=== PATIENT | female | born 1960 | race Caucasian/White ===

== ENCOUNTER 2020-02-23 11:20 | Emergency (ER) | payer MEDICAID ==
[~2020-02-23] VITALS: Ht 162.6 cm; Wt 86.2 kg
[2020-02-23] MEDS ORDERED: IOHEXOL 300 MG/ML 100ML BOTTLE IJ ONE (12:33)
[2020-02-23] MEDS ORDERED: SODIUM CHLORIDE 0.9% 1,000 ML IV ONE ×2 (12:45)
[2020-02-23 13:22] LABS: Basophils # (auto) 0.1 10 ^3/uL (0-0.2); Hemoglobin 12.2 g/dL (12.2-16.2); Lymphocytes # (auto) 1.9 10 ^3/uL (0.4-5.4)
[2020-02-23 13:24] LABS: Basophils % (auto) 0.4 % (0.0-2.0); Eosinophils # (auto) 0.5 10 ^3/uL (0-0.8); Eosinophils % (auto) 3.2 % (0.0-7.0); Hematocrit 37.7 % (36.0-46.0); Mean Corpuscular Hemoglobin 26.2 pg (28.0-32.0); Mean Corpuscular Hgb Conc. 32.2 g/dL (32.0-36.0); Mean Corpuscular Volume 81.3 fL (80.0-100.0); Monocytes # (auto) 0.7 10 ^3/uL (0-1.3); Monocytes % (auto) 4.5 % (0.0-12.0); Neutrophils # (auto) 11.7 10 ^3/uL (1.6-8.6); Neutrophils % (auto) 78.9 % (37.0-80.0); Platelet Count (auto) 407 10^3/uL (140-450); Red Blood Cells 4.64 10^6/uL (4.0-5.20); Red Cell Distribution Width 14.7 % (11.8-14.3); White Blood Cell 14.8 10^3/uL (4.4-10.8)
[2020-02-23 13:35] LABS: INR 0.96 (0.9-1.15); Partial Thromboplastin Time 30.9 sec (23.0-31.2)
[2020-02-23 13:50] LABS: Alanine Aminotransferase 15 U/L (13-56); Albumin 2.9 g/dL (3.4-5.0); Anion Gap 4 (5-15); Aspartate Aminotransferase 9 U/L (15-37); BUN/Creatinine Ratio 18.7; Blood Urea Nitrogen 17 mg/dL (7-18); Calcium 8.6 mg/dL (8.5-10.1); Carbon Dioxide 28 mmol/L (21-32); Chloride 105 mmol/L (98-107); GFR African American 81 mL/min; GFR Non-African American 67 mL/min; Glucose 178 mg/dL (74-106); Potassium 4.3 mmol/L (3.5-5.1); Sodium 137 mmol/L (136-145)
[2020-02-23 13:55] LABS: Alkaline Phosphatase 102 U/L (45-117); Bilirubin, Total 0.1 mg/dL (0.2-1.0); Total Protein 6.8 g/dL (6.4-8.2)
[2020-02-23 14:20] VITALS: BP 115/78
== END 2020-02-23 15:43 | disposition home or self-care (01) ==
LOC: EDBD 11:20 → ER 11:20
DX: S20.219A Contusion of unspecified front wall of thorax, initial encounter (principal); S30.1XXA Contusion of abdominal wall, initial encounter; R41.82 Altered mental status, unspecified; D72.829 Elevated white blood cell count, unspecified; R73.9 Hyperglycemia, unspecified; E44.0 Moderate protein-calorie malnutrition; Z68.32 Body mass index [BMI] 32.0-32.9, adult; V43.52XA Car driver injured in collision with other type car in traffic accident, initial encounter; Y93.89 Activity, other specified; Y92.488 Other paved roadways as the place of occurrence of the external cause; Y99.8 Other external cause status
CPT/HCPCS: 36415; 70450; 71260; 72125; 74177; 80053; 84484; 85025; 85610; 85730; 93005; 96360; 96361; 99285; J7030; Q9967

== ENCOUNTER 2024-05-12 00:01 | Inpatient (IN) | payer OTHER, MEDICAID ==
[2024-05-12] VITALS (16 sets, daily range): BP systolic 115–163; BP diastolic 67–89; PULSE 79–123; RESP 18–34; O2SAT 95–100
[~2024-05-12] VITALS: Ht 162.6 cm; Wt 79.8 kg
--- NOTE | 2024-05-12 00:10 | ED.PDOC ---
SOB-HPI HPI Comments HPI: Poor Historian. History obtained from patient and EMS. Both are extremely poor historian. 63-year-old female brought in by ambulance from home for respiratory distress. Per EMS, on arrival to the place of residence, patient was laying on the floor in severe respiratory distress pulse ox was 69% room air. Patient does not use oxygen at home. They stated that she was discharged from the hospital this morning with diagnosis of double pneumonia. They placed the patient on a CPAP and brought her here immediately. Patient was evaluated immediately upon arrival. Patient was placed on a BiPAP. Breathing treatment was initiated and steroids. Past Medical History: Diabetes, Past Surgical History: Denies any REVIEW OF SYSTEMS: CONSTITUTIONAL: Denies acute: fever, diaphoresis, chills, generalized weakness. HEAD: Denies acute: headache, photophobia Eyes: Denies acute: Double vision, vision loss, eye pain, eye discharge. EARS: Denies acute: tinnitus, hearing loss, ear discharge, ear pain, THROAT: Denies acute: sore throat, swelling, difficulty swallowing , pain with swallowing, change in voice. NECK: Denies acute: neck pain, neck swelling, stiff neck. HEART: Denies acute : chest pain, palpitations, LUNGS: Denies acute: , wheezing, cough, hemoptysis ABDOMEN: Denies acute: abdominal pain, Nausea, Vomiting, diarrhea, melena , hematemesis, hematochezia SKIN: Denies acute: rash, redness, lesions, itchiness. EXTREMITIES: Denies acute: calf pain, numbness, tingling, weakness, denies pain in extremity. Denies acute: Low back pain. Neuro: Denies acute: focal neurological deficit, motor or sensory focal neurological deficit, tremors, seizure like activity, confusion, dizziness, change in mental status, loss of bowel or bladder function, cauda equina like symptoms. : Denies acute: dysuria, hematuria, flank pain, increase in urinary frequency. PSYCH: Denies acute: hallucination, suicidal ideation, homicidal ideation. FEMALE: Denies acute: abnormal vaginal bleeding, foul odor, unusual discharge. PHYSICAL EXAM: General: Moderate to severe acute distress, awake and alert. Head: normocephalic, atraumatic. Neck: supple, trachea is midline, no swelling. Throat: Normal phonation. Eyes:, no erythema, no purulent discharge, no proptosis, no icterus. Heart: regular rate, regular rhythm, no significant murmur appreciated. Lungs: apparent respiratory distress, No wheezing, mild bilateral rhonchi, no crackles. No stridors Abdomen: non tender to palpation, non distended, soft, no guarding, no rebound, + bowel sounds. Obese Neuro: Awake, Alert, oriented to name, self, situation, follows commands GCS=15. Speech is normal. Skin: no petechia, no purpura, no cyanosis, non-pale, not jaundice. Lower extremities: --no - Pitting edema no deformity, no focal swelling, no calf TTP. Makes eye contact. moves all four extremities. Face: no apparent facial droop. Ambulating in the ED independently. ED COURSE: Time Seen by MD: 00:02 Primary Care Provider: JAGRUTI OROPEZA Reviewed notes: Nurses Notes, Tower Hand Notes, Allergies Information Source: Patient, Emergency Med Personnel Past Medical History PAST MEDICAL HISTORY: Denies Surgical History: Denies all surgeries SHOE STAMPER History: No Pertinent SHOE STAMPER History Social History Smoker: Non-Smoker Alcohol: Denies ETOH Use Drugs: Denies Drug Use Was a procedure done? Was a procedure done?: Yes Sedation Sedation?: No Chest Tube Indication: Pneumothorax (rigth) Procedure: Sterile preparation Anesthetic: Lidocaine (Lidocaine 2% with epi) Site: R 3rd intercostal space Drainage: Air Informed consent obtained: Yes Risks/benefits/alt described: Yes Notes Uresil flutter valve thoracostomy used, inserted at right 3rd ICS, using 12cc of 2% lidocaine. Chest tube connected to wall suction. Patient tolerated procedure well. Differential Dx Differential Diagnosis: Other (DDx include ACS, unstable angina, anxiety, PE, pneumothroax, neoplasm, cardiac ischemia, COPD, asthma, CHF, pleural effusion, tobacco abuse, pneumonia, hypoxia, hypercapnia, anemia., infection/sepsis., pulmonary edema. Asthma, Cardiac tamponade, infection.) X-Ray, Labs, Meds, VS Vital Signs Date Time Temp Pulse Resp B/P (MAP) Pulse Ox O2 Delivery O2 Flow Rate FiO2 05/12/24 00:52 153/90 05/12/24 00:15 123 34 97 Bi-Pap+ 45 45 05/12/24 00:15 116 32 156/94 (114) 98 05/12/24 00:05 116 156/94 Facial BiPAP Mask 45 05/12/24 00:01 97.6 130 24 166/85 (112) 97 Lab Test 05/12/24 01:35 05/12/24 00:27 Range/Units Troponin I High Sensitivity 5 5 </=34 ng/L White Blood Count 15.5 H 4.4-10.8 10^3/uL Red Blood Count 4.74 4.0-5.20 10^6/uL Hemoglobin 12.9 12.2-16.2 g/dL Hematocrit 39.1 36.0-46.0 % Mean Corpuscular Volume 82.5 80.0-100.0 fL Mean Corpuscular Hemoglobin 27.3 L 28.0-32.0 pg Mean Corpuscular Hemoglobin Concent 33.1 32.0-36.0 g/dL Red Cell Distribution Width 14.4 H 11.8-14.3 % Platelet Count 614 H 140-450 10^3/uL Mean Platelet Volume 7.0 6.9-10.8 fL Neutrophils (%) (Auto) 37.0-80.0 % Lymphocytes (%) (Auto) 10.0-50.0 % Monocytes (%) (Auto) 0.0-12.0 % Basophils (%) (Auto) 0.0-2.0 % Neutrophils # (Auto) 1.6-8.6 10 ^3/uL Lymphocytes # (Auto) 0.4-5.4 10 ^3/uL Monocytes # (Auto) 0-1.3 10 ^3/uL Differential Total Cells Counted 100.0 100 Neutrophils % (Manual) 84 H 37.0-80.0 Band Neutrophils % (Manual) 3 Lymphocytes % (Manual) 10 10.0-50.0 Monocytes % (Manual) 3 0-12 Eosinophils % (Manual) 0 0-7 Basophils % (Manual) 0 0.0-2.0 Metamyelocytes % (manual) 0 Myelocytes % (Manual) 0 Promyelocytes % (Manual) 0 Blast Cells % (Manual) 0 Reactive Lymphocytes 0 Platelet Estimate Increased Sodium Level 135 L 136-145 mmol/L Potassium Level 4.1 3.5-5.1 mmol/L Chloride Level 98 98-107 mmol/L Carbon Dioxide Level 28 20-31 mmol/L Anion Gap 9 5-15 Blood Urea Nitrogen 31 H 9-23 mg/dL Creatinine 0.89 0.550-1.02 mg/dL Glomerular Filtration Rate Calc 72 >90 mL/min BUN/Creatinine Ratio 34.8 H 10.0-20.0 Serum Glucose 367 H 74-106 mg/dL Lactic Acid Level 2.7 *H 0.4-2.0 mmol/L Calcium Level 9.0 8.7-10.4 mg/dL Magnesium Level 1.3 L 1.6-2.6 mg/dL Total Bilirubin 0.3 0.2-1.0 mg/dL Aspartate Amino Transferase (AST) 10 L 13-40 U/L Alanine Aminotransferase (ALT) 15 7-40 U/L Alkaline Phosphatase 104 46-116 U/L B-Type Natriuretic Peptide 123.46 0-100 pg/mL Total Protein 6.1 5.7-8.2 g/dL Albumin 3.6 3.2-4.8 g/dL Current Medications Medications (Trade) Dose Ordered Sig/Parrish Route Start Time Stop Time Status Last Admin Albuterol (Ventolin Medneb) 2.5 mg ONCE ONCE NEB 05/12/24 00:15 05/12/24 00:16 DC 05/12/24 00:21 Ipratropium [place] (Atrovent Medneb) 0.5 mg ONCE ONCE NEB 05/12/24 00:15 05/12/24 00:16 DC 05/12/24 00:21 Methylprednisolone Sodium Succinate (Solu Medrol) 125 mg ONCE ONCE IV 05/12/24 00:45 05/12/24 00:46 DC 05/12/24 00:50 Fentanyl Citrate 50 mcg ONCE ONCE IV 05/12/24 01:00 05/12/24 01:01 DC 05/12/24 00:52 Magnesium Sulfate/ Dextrose 100 ml @ 100 mls/hr ONCE ONCE IV 05/12/24 01:30 05/12/24 02:29 DC 05/12/24 02:32 Sodium Chloride 1,000 ml @ 1,000 mls/hr Q1H ONCE IV 05/12/24 01:30 05/12/24 02:29 DC 05/12/24 02:32 Piperacillin Sod/ Tazobactam Sod 100 ml @ 100 mls/hr ONCE ONCE IV 05/12/24 01:30 05/12/24 02:29 DC 05/12/24 02:[address] [address] Ph: [phone] DIAGNOSTIC IMAGING Diagnostic Imaging Report : [id number] Signed PATIENT: KRISS MCCORMICK ACCT: [id number] UNIT: [id number] : 1960 LOC: ER ROOM / BED: / AGE / SEX: 63 / F ADM STATUS: REG ER SERVICE ORDERING PHYSICIAN: YOLANDA LOPEZ DO PROCEDURE(s): CXRP - CHEST PORTABLE REASON: sob ORDER NUMBER(s): [id number], ACCESSION NUMBER(s): [id number] EXAM: XY CHEST PORTABLE CLINICAL HISTORY: sob TECHNIQUE: Single view of the chest WID: COMPARISON: CT chest from 02/23/2020 FINDINGS: Lines and tubes: None Chest: The heart size and pulmonary vasculature is within normal limits. Moderate right pneumothorax. Mixed opacities in the right lung. Diffuse interstitial prominence of the lungs. The osseous structures are grossly intact. IMPRESSION: Moderate right pneumothorax. ATED BY: FILEMON DWYER MD DICTATED DATE/TIME: 05/12/24144 SIGNED BY: FILEMON DWYER MD SIGNED DATE/TIME: 05/12/24144 CC: Time of 1ST Reevaluation: 01:50 Reevaluation 1ST: Improved Time of 2ND Reevaluation: 02:56 Reevaluation 2ND: Resolved Patient Education/Counseling: Diagnosis, Treatment Family Education/Counseling: Other Comments Patient presented with the above HPI.----respiratory distress--workup was initiated. patient was found with the above mentioned diagnosis. Patient was evaluated immediately upon arrival. the following medications were ordered: please refer to order lists of meds and tests obtained by myself Dr. Lopez. Patient ED course and VS have been stabilized. Patient has been reassessed in the ED and remained in a stable condition. Pertinent incidental findings were discussed with the patient and/or family. Patient/family voices understanding and is agreeable with plan. Patient has been observed in the ED adequate length of time to insure improvement/stability. Escalation of care considered: Consideration of escalation to observation or admission Patient was ADMITTED to the medicine team for further evaluation and treatment of their presentation. Patient chest x-ray shows moderate right-sided pneumothorax. She denies any fall or trauma. Patient was descended for procedure of placement of a chest tube on the right side. This was done under local anesthesia. Please see procedure note. Procedure was performed successfully. Bleeding minimal. Complications none. Repeat chest x-ray were obtained that shows significant improvement of the pneumothorax. All the reports of any imaging studies that were ordered by myself were reviewed by myself. Departure 1 Departure Time of Disposition: 00:09 Impression: Primary Impression: Acute respiratory distress Additional Impressions: Hypomagnesemia Elevated lactic acid level Leukocytosis Thrombocytopenia Pneumothorax on right Disposition: ADMITTED INPATIENT Admit to: [facility] Condition: Guarded Discharged With: Self Critical Care Note Critical Care Time?: Yes (1 hr-critical care time only) Heart Score Heart Score: Heart Score Response (Comments) Value History N/A 0 EKG N/A 0 Age N/A 0 Risk Factors N/A 0 Troponin N/A 0 Total 0 I personally scribed for YOLANDA LOPEZ DO ([email or web address]) on 05/12/24 at 02:36. Electronically submitted by Paul Moe ([email or web address]). YOLANDA LOPEZ DO May 12, 2024 00:10
[2024-05-12] MEDS: IPRATROPIUM BROM 0.5 MG/2.5ML INH SOL NEB ONE (00:21)
[2024-05-12] MEDS: ALBUTEROL SULF 2.5 MG/0.5ML(0.5%) NEB SOLN NEB ONE (00:21)
[2024-05-12] MEDS: methylPREDNISolone SOD SUCC 125 MG/2 ML VL IV ONE ×2 (00:50→15:06)
[2024-05-12] MEDS: fentaNYL CITRATE 100 MCG/2 ML VL ONE (00:50)
[2024-05-12] MEDS: fentaNYL CITRATE 100 MCG/2 ML VL IV ONE ×3 (00:52→06:45)
[2024-05-12 01:03] LABS: Hemoglobin 12.9 g/dL (12.2-16.2)
[2024-05-12 01:05] LABS: Hematocrit 39.1 % (36.0-46.0); Mean Corpuscular Hemoglobin 27.3 pg (28.0-32.0); Mean Corpuscular Hgb Conc. 33.1 g/dL (32.0-36.0); Mean Corpuscular Volume 82.5 fL (80.0-100.0); Platelet Count (auto) 614 10^3/uL (140-450); Red Blood Cells 4.74 10^6/uL (4.0-5.20); Red Cell Distribution Width 14.4 % (11.8-14.3); White Blood Cell 15.5 10^3/uL (4.4-10.8)
[2024-05-12 01:08] LABS: Alanine Aminotransferase 15 U/L (7-40); Albumin 3.6 g/dL (3.2-4.8); Alkaline Phosphatase 104 U/L (46-116); Anion Gap 9 (5-15); BUN/Creatinine Ratio 34.8 (10.0-20.0); Carbon Dioxide 28 mmol/L (20-31); Potassium 4.1 mmol/L (3.5-5.1)
[2024-05-12 01:09] LABS: Aspartate Aminotransferase 10 U/L (13-40); Bilirubin, Total 0.3 mg/dL (0.2-1.0); Blood Urea Nitrogen 31 mg/dL (9-23); Chloride 98 mmol/L (98-107); Glucose 367 mg/dL (74-106); Lactic Acid w/Reflex 2.7 mmol/L (0.4-2.0); Magnesium 1.3 mg/dL (1.6-2.6); Sodium 135 mmol/L (136-145); Total Protein 6.1 g/dL (5.7-8.2)
[2024-05-12 01:15] LABS: Basophils % (manual) 0 (0.0-2.0); Blast Cells 0; Eosinophils % (manual) 0 (0-7); Metamyelocytes % 0; Myelocytes % 0; Promyelocytes % 0; Reactive Lymphocytes 0
[2024-05-12 01:25] LABS: Band Neutrophils % (manual) 3; Lymphocytes % (manual) 10 (10.0-50.0); Monocytes % (manual) 3 (0-12)
[2024-05-12 01:28] LABS: Platelet Estimate Increased
--- NOTE | 2024-05-12 01:48 | DVH ---
EXAM: XY CHEST PORTABLE CLINICAL HISTORY: sob TECHNIQUE: Single view of the chest WID: COMPARISON: CT chest from 02/23/2020 FINDINGS: Lines and tubes: None Chest: The heart size and pulmonary vasculature is within normal limits. Moderate right pneumothorax. Mixed opacities in the right lung. Diffuse interstitial prominence of t he lungs. The osseous structures are grossly intact. IMPRESSION: Moderate right pneumothorax.
[2024-05-12] MEDS: LIDOCAINE 2%HCL (LOCAL ANESTH.) INJ 10ml MDV IJ ONE (02:03)
[2024-05-12] MEDS: LIDOCAINE W/ EPINEPHRINE 2% INJ 20ML VIAL ONE (02:03)
[2024-05-12] MEDS: SODIUM CHLORIDE 0.9% 1,000 ML IV ONE ×2 (02:32→04:12)
[2024-05-12] MEDS: MAGNESIUM SULFATE 1GM/100ML 100 ML IV ONE ×2 (02:32→16:44)
[2024-05-12] MEDS: PIPERACILLIN-TAZOB 3.375GM 100 ML IV ONE (02:47)
--- NOTE | 2024-05-12 03:01 | DVH ---
CHEST RADIOGRAPH Indication: post chest tube placement Technique: Single frontal view of the chest was obtained COMPARISON: XY CHEST PORTABLE on DOS: 05/12/24 FINDINGS: Lines and Tubes: There has been interval placement of a right-sided chest tube. Lungs: Increased interstitial markings are noted throughout the lungs, worse on the right. Pleura: No effusion. No pneumothorax. Cardiomediastinal contours: Unremarkable Bones: Unremarkable IMPRESSION: 1. Interval placement of a right-sided chest tube with re-expansion of the right lung. 2. Pneumonia.
[2024-05-12 03:14] LABS: Base Excess 0.6 mmol/L (-2.0-3.0)
[2024-05-12] MEDS ORDERED: NITROGLYCERIN 0.4 MG SL TAB SL PRN (07:45)
[2024-05-12] MEDS ORDERED: DEXTROSE (50%) 50ML SYRG IV PRN (07:45)
--- NOTE | 2024-05-12 07:47 | DVHHP2 ---
History of Present Illness Reason for Visit: SOB History of Present Illness Minor, Nae is a 63-year-old female with past medical history of diabetes, anxiety, depression, pneumonia, and cholecystectomy who presents to the ED for SOB. Patient states that she was at [facility] for[facility] was discharged yesterday with pneumonia. She does not recall what medications she was given. Patient states that she had called EMS because she was feeling short of breath when she was at home, she stated she had crawled to the door to open up the door for them and that is when EMS found her lying on the floor. On the field her room air sats were 60%. Patient is a poor historian but does states that she smokes 1 pack of cigarettes per day, quit drinking, and quit marijuana usage. Patient denies any chest pain, abdominal pain, nausea, vomiting, diarrhea, fever, chills, lightheadedness, weakness, and dizziness. Pulmonary: Pneumonia Psych: Anxiety, Depression Endocrine: Diabetes Past Surgical History: Cholecystectomy Family History: Other (Both parents ) Smoke: 1 pack per day ALCOHOL: none Drugs: Marijuana Lives: with Family Domestic Violence: Neg Review of Systems Constitutional: No: Fever, Chills, Sweats, Weakness, Malaise, Other Eyes: No: Pain, Vision change, Conjunctivae inflammation, Eyelid inflammation, Other, Redness ENT: No: Ear pain, Ear discharge, Nose pain, Nose discharge, Nose congestion, Mouth pain, Mouth swelling, Throat pain, Throat swelling, Other Respiratory: Shortness of breath; No: Cough, Dry, SOB with excertion, Wheezing, Hemoptysis, Pleuritic Pain, Sputum, Wheezing, Other Cardiovascular: No: Chest Pain, Palpitations, Orthopnea, Paroxysmal Noc. Dyspnea, Edema, Lt Headedness, Other Gastrointestinal: No: Nausea, Vomiting, Abdominal Pain, Diarrhea, Constipation, Melena, Hematochezia, Other Genitourinary: No Dysuria, No Frequency, No Incontinence, No Hematuria, No Retention, No Other Musculoskeletal: No: other, neck pain, shoulder pain, arm pain, back pain, hand pain, leg pain, foot pain Skin: No: Rash, Lesions, Jaundice, Bruising, Other Neurological: No: Weakness, Numbness, Incoordination, Change in speech, Confusion, Seizures, Other Allergies: Coded Allergies: NO KNOWN ALLERGIES (Unverified , 06/15/15) Medications Current Medications Medications Dose Ordered Sig/Parrish Route Start Time Stop Time Status Last Admin Dose Admin Ceftriaxone Sodium 50 ml @ 100 mls/hr DAILY@09 IV 05/12/24 09:00 UNV Azithromycin 250 ml @ 125 mls/hr DAILY IV 05/12/24 10:00 UNV Acetaminophen/ Hydrocodone Bitart 1 tab Q4HP PRN PO 05/12/24 07:45 UNV Ondansetron HCl 4 mg Q4HP PRN IV 05/12/24 07:45 UNV Enoxaparin Sodium 30 mg DAILY SC 05/12/24 10:00 UNV Acetaminophen 650 mg Q6HP PRN PO 05/12/24 07:45 UNV Morphine Sulfate 2 mg Q4HPRN PRN IV 05/12/24 07:45 UNV Nitroglycerin 0.4 mg Q5MINP PRN SL 05/12/24 07:45 UNV Morphine Sulfate 2 mg Q30M PRN IV 05/12/24 07:45 UNV Diagnostic Test (Pha) 1 strip ACHS 05/12/24 11:30 UNV Insulin Human Regular ACHS SC 05/12/24 11:30 UNV Dextrose 50 ml UD PRN IV 05/12/24 07:45 UNV Exam Vital Signs Vital Signs Date Time Temp Pulse Resp B/P (MAP) Pulse Ox O2 Delivery O2 Flow Rate FiO2 05/12/24 06:45 151/81 05/12/24 06:34 95 Nasal Cannula 3.0 05/12/24 06:34 32 05/12/24 06:00 98.0 106 16 98.0 General Appearance: Alert, Oriented X3, Cooperative, mild distress HEENT: PERRLA, EOMI, Mucous membr. moist/pink Respiratory: Normal air movement Cardiovascular: Normal S1, Normal S2, No murmurs Abdominal: Normal bowel sounds, Soft, No tenderness, No hepatospenomegaly, No masses Extremities: No clubbing, No cyanosis, No edema, Normal pulses, No tenderness/swelling Skin: No significant lesion Neuro: Normal speech, Strength at 5/5 X4 ext, Normal tone, Sensation intact Psych/Mental Status: Mental status NL, Mood NL Labs/Xrays Labs Test 05/12/24 02:36 05/12/24 01:55 05/12/24 01:35 05/12/24 00:27 Range/Units Lactic Acid Level 3.1 *H 0.4-2.0 mmol/L Blood Gas Specimen Type Arterial Blood Gas Sample Site Right radial Blood Gas Patient Temperature 37.0 Arterial Blood Date Drawn [id number] Arterial Blood pH 7.436 7.350-7.450 Arterial Blood Partial Pressure CO2 37.4 32.0-45.0 mmHg Arterial Blood Partial Pressure O2 99.9 83.0-108.0 mmHg Arterial Blood HCO3 24.6 21.0-28.0 mmol/L Arterial Blood Oxygen Saturation 97.8 94.0-98.0 % Arterial Blood Base Excess 0.6 -2.0-3.0 mmol/L Arterial Blood Oxyhemoglobin 96.4 94.0-98.0 % Arterial Blood Carboxyhemoglobin 0.9 0.5-1.5 % Arterial Blood Methemoglobin 0.5 0.0-1.5 % Kt Test Yes Blood Gas Total Hemoglobin 13.10 12.0-16.0 g/dL Blood Gas Set Respiration Rate 12.0 Blood Gas Modality Mask - bipap Blood Gas Spontaneous Rate 19 FiO2 % 40.0 Blood Gas Tidal Volume 620.0 Blood Gas EPAP 5 Blood Gas IPAP 12 Troponin I High Sensitivity 5 </=34 ng/L White Blood Count 15.5 H 4.4-10.8 10^3/uL Red Blood Count 4.74 4.0-5.20 10^6/uL Hemoglobin 12.9 12.2-16.2 g/dL Hematocrit 39.1 36.0-46.0 % Mean Corpuscular Volume 82.5 80.0-100.0 fL Mean Corpuscular Hemoglobin 27.3 L 28.0-32.0 pg Mean Corpuscular Hemoglobin Concent 33.1 32.0-36.0 g/dL Red Cell Distribution Width 14.4 H 11.8-14.3 % Platelet Count 614 H 140-450 10^3/uL Mean Platelet Volume 7.0 6.9-10.8 fL Neutrophils (%) (Auto) 37.0-80.0 % Lymphocytes (%) (Auto) 10.0-50.0 % Monocytes (%) (Auto) 0.0-12.0 % Basophils (%) (Auto) 0.0-2.0 % Neutrophils # (Auto) 1.6-8.6 10 ^3/uL Lymphocytes # (Auto) 0.4-5.4 10 ^3/uL Monocytes # (Auto) 0-1.3 10 ^3/uL Differential Total Cells Counted 100.0 100 Neutrophils % (Manual) 84 H 37.0-80.0 Band Neutrophils % (Manual) 3 Lymphocytes % (Manual) 10 10.0-50.0 Monocytes % (Manual) 3 0-12 Eosinophils % (Manual) 0 0-7 Basophils % (Manual) 0 0.0-2.0 Metamyelocytes % (manual) 0 Myelocytes % (Manual) 0 Promyelocytes % (Manual) 0 Blast Cells % (Manual) 0 Reactive Lymphocytes 0 Platelet Estimate Increased Sodium Level 135 L 136-145 mmol/L Potassium Level 4.1 3.5-5.1 mmol/L Chloride Level 98 98-107 mmol/L Carbon Dioxide Level 28 20-31 mmol/L Anion Gap 9 5-15 Blood Urea Nitrogen 31 H 9-23 mg/dL Creatinine 0.89 0.550-1.02 mg/dL Glomerular Filtration Rate Calc 72 >90 mL/min BUN/Creatinine Ratio 34.8 H 10.0-20.0 Serum Glucose 367 H 74-106 mg/dL Calcium Level 9.0 8.7-10.4 mg/dL Magnesium Level 1.3 L 1.6-2.6 mg/dL Total Bilirubin 0.3 0.2-1.0 mg/dL Aspartate Amino Transferase (AST) 10 L 13-40 U/L Alanine Aminotransferase (ALT) 15 7-40 U/L Alkaline Phosphatase 104 46-116 U/L B-Type Natriuretic Peptide 123.46 0-100 pg/mL Total Protein 6.1 5.7-8.2 g/dL Albumin 3.6 3.2-4.8 g/dL EXAM: XY CHEST PORTABLE CLINICAL HISTORY: sob TECHNIQUE: Single view of the chest WID: COMPARISON: CT chest from 02/23/2020 FINDINGS: Lines and tubes: None Chest: The heart size and pulmonary vasculature is within normal limits. Moderate right pneumothorax. Mixed opacities in the right lung. Diffuse interstitial prominence of the lungs. The osseous structures are grossly intact. IMPRESSION: Moderate right pneumothorax. CHEST RADIOGRAPH Indication: post chest tube placement Technique: Single frontal view of the chest was obtained COMPARISON: XY CHEST PORTABLE on DOS: 05/12/24 FINDINGS: Lines and Tubes: There has been interval placement of a right-sided chest tube. Lungs: Increased interstitial markings are noted throughout the lungs, worse on the right. Pleura: No effusion. No pneumothorax. Cardiomediastinal contours: Unremarkable Bones: Unremarkable IMPRESSION: 1. Interval placement of a right-sided chest tube with re-expansion of the right lung. 2. Pneumonia. Assessment/Plan Assessment/Plan Assessment/Plan: Acute hypoxic respiratory failure likely 2nd to PTX Leukocytosis likely due to PNA Sepsis likely secondary to PNA Hypomagnesemia Moderate right pneumothorax Chest tube Labs Chest x-ray noted Supportive oxygen Fentanyl given ED NS given ED IV antibiotics-Zosyn given ED IV antibiotics-ceftriaxone plus azithromycin Mag level Steroids Respiratory treatments ABG EKG Troponin noted UA Lactic BNP Lovenox Magnesium IV IV fluids Pulmonary consult Blood culture Urine culture UA Diabetes type 2 uncontrolled Hemoglobin A1c ISS and Accu-Cheks Chronic anxiety Chronic depression Follow up outpatient with PCP FEN/PPX diet Ivf DVT ppx lovenox PUD ppx not indicated no hx of GERD or GI bleed Discussed plan of care with patient and nurse Home medications reconciled Admit to telemetry Plan discussed with: Patient My Orders Orders - RONDA CONROY FERTILIZER LOADER Procedure Category Date Status Time Ceftriaxone 1gm/50ml PHA 05/12/24 Logged D5w (Rocephin) 09:00 Ceftriaxone 1gm/50ml PHA 05/12/24 Logged D5w (Rocephin) 07:45 Azithromycin 500mg/ PHA 05/12/24 Logged 250ml (Zithromax 50 10:00 Admit ADMIT 05/12/24 Transmitted 07:42 Allergies MIGUEL ANGEL 05/12/24 Transmitted 07:42 Code Status CODE 05/12/24 Transmitted 07:42 Oxygen Per Hour RT 05/12/24 Transmitted 07:42 Hydrocodone-Acet PHA 05/12/24 Logged 5/325mg Tab ([place] 07:45 Ondansetron Hcl PHA 05/12/24 Logged (Zofran) 07:45 Complete Blood Count LAB 05/13/24 Verified 04:00 Comprehensive LAB 05/13/24 Verified Metabolic Panel 04:00 Cardiac DIET 05/12/24 Transmitted Diet-2gna,Lofat,Lochol Breakfast Enoxaparin Sodium PHA 05/12/24 Logged (Lovenox) 10:00 Acetaminophen Tablet PHA 05/12/24 Logged (Tylenol Tablet) 07:45 Morphine Sulfate [facility] 05/12/24 Logged Injection 07:45 Nitroglycerin [facility] 05/12/24 Logged Sublingual (Ntrostat 07:45 Morphine Sulfate PHA 05/12/24 Logged Injection 07:45 Stat Ekg For Chest [facility] 05/12/24 Transmitted Pain 07:42 Notify Md Of Changes [facility] 05/12/24 Transmitted From Base 07:42 Burner Shaft For [facility] 05/12/24 Transmitted 24 Hours 07:42 Emergency Dysrhythmia [facility] 05/12/24 Transmitted Protocol 07:42 Rhythm Strips Once [facility] 05/12/24 Transmitted Every Shift 07:42 Oxygen By Nasal 05/12/24 Transmitted Cannula 07:42 Glucose Blood [facility] 05/12/24 Logged (Accu-Chek Comfort 11:30 Insulin R (Human) PHA 05/12/24 Logged (Insulin R) 11:30 Dextrose 50% Syringe PHA 05/12/24 Logged 07:45 Hemoglobin A1c LAB 05/12/24 Logged 07:42 NS [facility] 05/12/24 Transmitted 08:00 Date of Service: May 12, 2024 Billing Provider: RONDA CONROY Common Visit Codes: [id number] INP/OBS CARE (HIGH) RONDA CONROY May 12, 2024 07:47
[2024-05-12] MEDS: cefTRIAXone 1GM/50ML D5W 50 ML IV ONE (08:28)
[2024-05-12] MEDS: SODIUM CHLORIDE 0.9% 1,000 ML IV SCH (08:29)
[2024-05-12] MEDS: ENOXAPARIN SOD 40 MG/0.4 ML SYRINGE SC SCH (10:02)
[2024-05-12] MEDS: AZITHROMYCIN 500MG/ 250ML 250 ML IV SCH (10:03)
[2024-05-12] MEDS: MORPHINE SULFATE INJ 2 MG/ml SYRG IV PRN (10:54)
[2024-05-12] MEDS: ACCU-CHEK COMFORT CURVE STRIP VI SCH (11:47)
[2024-05-12] MEDS: InsuLIN REG 1unit/0.01ml Soln (100units/ml) SC SCH ×3 (11:48→21:51)
--- NOTE | 2024-05-12 12:52 | DVHPN2 ---
Reviewed: Care Plan, H&P, Labs, Medications, Previous Orders, Radiology Changes from previous H/P or p: No Changes Objective Vitals Vital Signs Date Time Temp Pulse Resp B/P (MAP) Pulse Ox O2 Delivery O2 Flow Rate FiO2 05/12/24 11:35 90 18 162/77 05/12/24 08:38 95 3.0 05/12/24 08:00 Nasal Cannula* 28 05/12/24 08:00 98.2 98.2 Intake/Output Intake and Output 05/12/24 07:00 Intake Total 2200 ml Balance 2200 ml Intake IV Total 2200 ml Medications Current Medications Medications Dose Ordered Sig/Parrish Route Start Time Stop Time Status Last Admin Dose Admin Ceftriaxone Sodium 50 ml @ 100 mls/hr DAILY@09 IV 05/13/24 09:00 Azithromycin 250 ml @ 125 mls/hr DAILY IV 05/12/24 10:00 05/12/24 10:03 125 MLS/HR Acetaminophen/ Hydrocodone Bitart 1 tab Q4HP PRN PO 05/12/24 07:45 Ondansetron HCl 4 mg Q4HP PRN IV 05/12/24 07:45 Enoxaparin Sodium 40 mg DAILY SC 05/12/24 10:00 05/12/24 10:02 40 MG Acetaminophen 650 mg Q6HP PRN PO 05/12/24 07:45 Morphine Sulfate 2 mg Q4HPRN PRN IV 05/12/24 07:45 05/12/24 10:54 2 MG Nitroglycerin 0.4 mg Q5MINP PRN SL 05/12/24 07:45 Morphine Sulfate 2 mg Q30M PRN IV 05/12/24 07:45 Diagnostic Test (Pha) 1 strip ACHS 05/12/24 11:30 05/12/24 11:47 1 STRIP Dextrose 50 ml UD PRN IV 05/12/24 07:45 Sodium Chloride 1,000 ml @ 100 mls/hr Q10H IV 05/12/24 08:00 05/12/24 08:29 100 MLS/HR Insulin Human Regular HS SC 05/12/24 22:00 Insulin Human Regular AC SC 05/12/24 17:00 Laboratory Results Laboratory Tests 05/12/24 00:27 Chemistry Test 05/12/24 00:27 Albumin 3.6 g/dL (3.2-4.8) Calcium Level 9.0 mg/dL (8.7-10.4) Magnesium Level 1.3 mg/dL (1.6-2.6) L Total Protein 6.1 g/dL (5.7-8.2) Cardiac Markers Test 05/12/24 00:27 B-Type Natriuretic Peptide 123.46 pg/mL (0-100) LFT Test 05/12/24 00:27 Alanine Aminotransferase (ALT) 15 U/L (7-40) Alkaline Phosphatase 104 U/L (46-116) Aspartate Amino Transferase (AST) 10 U/L (13-40) L Total Bilirubin 0.3 mg/dL (0.2-1.0) HgA1c, TSH Test 05/12/24 00:27 Hemoglobin A1c > 14.0 % A1C (<5.7) H Blood Gas Results Test 05/12/24 01:55 Arterial Blood pH 7.436 (7.350-7.450) FiO2 % 40.0 Labs and/or images reviewed: Labs reviewed by me, Image(s) reviewed by me Assessment/Plan Assessment/Plan Septic shock Secondary to pneumonia with elevated white count shortness of breath and altered mental status Acute Hypoxic respiratory failure: Oxygen by nasal cannula Acute right pneumothorax status post chest tube placement in the ER Right-sided pneumonia consult for Dr. Drake Chung [facility] Uncontrolled diabetes with glucose of 410; insulin aggressive sliding scale diabetic education we will order A1c Acute lactic acidosis Acute metabolic acidosis Anxiety Depression Patient was seen in [facility] three days ago for pneumonia Time spent 70 minutes Patient is full code Advanced care planning time 20 minutes Prognosis poor Plan discussed with: Patient Date of Service: May 12, 2024 Billing Provider: REYES LANE MD Common Visit Codes: [id number] CARE 30-[address] MD May 12, 2024 12:52
[2024-05-12] MEDS: LORazepam 2MG/ML-1ML VIAL IV PRN (13:59)
[2024-05-12] MEDS: IPRATROPIUM BROM 0.5 MG/2.5ML INH SOL NEB SCH (14:20)
[2024-05-12] MEDS: ALBUTEROL SULF 2.5 MG/0.5ML(0.5%) NEB SOLN NEB SCH (14:20)
[2024-05-12] MEDS ORDERED: methylPREDNISolone SOD SUCC 125 MG/2 ML VL IV SCH (14:45)
[2024-05-12 14:51] LABS: COVID19 ANTIGEN SOFIA FIA NEGATIVE (NEGATIVE)
[2024-05-12 14:52] LABS: Rapid Influenza A Negative (Negative); Rapid Influenza B Negative (Negative)
--- NOTE | 2024-05-12 15:27 | DVH ---
CHEST RADIOGRAPH Indication: INCREASED SOB Technique: Single frontal view of the chest was obtained COMPARISON: XY CHEST XRAY 1 VIEW on DOS: 05/12/24, XY CHEST PORTABLE on DOS: 05/12/24 FINDINGS: Lines and Tubes: Right chest tube noted. 30 % new pneumothorax. Lungs: Clear Pleura: No effusion. No pneumothorax. Cardiomediastinal contours: Unremarkable Bones: Unremarkable IMPRESSION: 1. Interval development of a 30% pneumothorax when compared to the prior study. The right-sided chest tube is not in the same location when compared to 05/12/2024. Current film as the chest tube more medi al in location in the right upper lung field.
[2024-05-12 16:59] LABS: Base Excess 1.3 mmol/L (-2.0-3.0)
[2024-05-12] MEDS: LORazepam 2MG/ML-1ML VIAL IV ONE (18:06)
--- NOTE | 2024-05-12 18:16 | DVH ---
CHEST RADIOGRAPH Indication: POST PROCEDURE Technique: Single frontal view of the chest was obtained Comparison: XY CHEST XRAY 1 VIEW on DOS: 05/12/24, XY CHEST XRAY 1 VIEW on DOS: 05/12/24, XY CHEST PORTAB LE on DOS: 05/12/24 FINDINGS: Lines and Tubes: None Lungs: No focal consolidation. Pleura: No effusion. Pneumothorax right upper lung field estimated at approximately 30-40%. The pleural surfaces at the to p of the 4th rib. Cardiomediastinal contours: Unremarkable Bones: No acute osseous abnormality. IMPRESSION: 1. Right upper lobe pneumothorax estimated at 30-40%. Pleural surfaces of the top of the 4th rib.
--- NOTE | 2024-05-12 21:45 | DVH ---
CHEST RADIOGRAPH Indication: post chest tube Technique: Single frontal view of the chest was obtained Comparison: XY CHEST XRAY 1 VIEW on DOS: 05/12/24, XY CHEST XRAY 1 VIEW on DOS: 05/12/24, XY CHEST XRAY 1 VIEW on DOS: 05/12/24 FINDINGS: Lines and Tubes: None Lungs: Persistent right apical pneumothorax unchanged. Chest tube in place in the mid 2 lower right lung field. Pleura: No effusion. Cardiomediastinal contours: Unremarkable Bones: No acute osseous abnormality. IMPRESSION: 1. Chest tube in place on the right 2. No change in the right apical pneumothorax.
[2024-05-12] MEDS: methylPREDNISolone SOD SUCC 125 MG/2 ML VL IV SCH (21:51)
[2024-05-12] MEDS: HYDROcodone-ACET 5/325MG TAB PO PRN (21:56)
[2024-05-12] MEDS: MORPHINE SULFATE INJ 2 MG/ml SYRG IV ONE (22:19)
--- NOTE | 2024-05-12 22:52 | DVHNC2 ---
Procedure - Right Alfonso Chest Tube Cook Alfonso Pigtail Chest tube placement procedure note: Physician: Dr Bertram Juan Diagnosis: Pneumothorax, Hypoxia Indication: Hypoxia, evacuation of air from pleural space Consent: Consent was obtained from patient prior to procedure. Indication, risks, and benefits were explained at length. Time out time: 2232 pm Patient medications and allergies reviewed. The risks and benefits of the procedure and the sedation options and risk were discussed with the patient's healthcare proxy. All questions were answered and informed consent was obtained. Patient identification and proposed procedure were verified prior to the procedure by the physician, and a nurse in the patient's room. The heart rate, respiratory rate, oxygen saturations, blood pressure, adequacy of pulmonary ventilation, and response to care were monitored throughout the procedure. The physical status of the patient was reassessed after the procedure. Procedure summary: A time-out was performed and a chest x-ray was reviewed prior to procedure. The appropriate site was confirmed and marked. My hands were washed immediately prior to the procedure, I wore a surgical cap, mask with protective eyewear, sterile gown and sterile gloves throughout the procedure. The patient was prepped and draped in a sterile manner using chlorhexidine scrub after the appro priate level was percussed and confirmed by ultrasound. 1% lidocaine was used to anesthetize the skin, subcutaneous tissue, superior aspect of the rib periosteum and parietal pleura. An 18-gauge needle with syringe attached was inserted into the pleural space with aspiration of air to verify placement. A guidewire was advanced into the pleural space and needle was withdrawn. 0.5 cm incision was made through the skin and subcutaneous tissues were dilated with a dilator. The 14 [place] Cook Alfonso pigtail chest drain was inserted into the pleural space. The drain was then immediately connected to a Pleur-evac. Adequate placement confirmed by air leak. The chest tube was sutured in place and dressing was applied. The patient tolerated the procedure well. CXR post procedure demonstrates RIGHT chest tube in place and re-expansion of the lung. Estimated blood loss: Less than 5 mL. Complications: None. CPT 78813 GILBERT JUAN MD May 12, 2024 22:51
--- NOTE | 2024-05-12 22:52 | DVHINCON2 ---
Date of service: May 12, 2024 Referring Physician Anjel Eller MD Reason for Consultation Acute hypoxic respiratory failure, pneumothorax. History of Present Illness A 63-year-old woman with past medical history of diabetes, anxiety, depression, and pneumonia who presents to the ED today with c/o shortness of breath. Patient states that she was at [facility] for 3 days for pneumonia and was discharged yesterday. Patient was at home when she called EMS d/t shortness of breath, she had crawled to the door to open the door for them and that is when EMS found her lying on the floor. On the field her room air sats were 60%. Patient denied any chest pain, abdominal pain, N/V/D, fever, chills, lightheadedness, weakness, or dizziness. Patient was admitted for further care, and pulmonary consultation is requested for evaluation and management due to acute hypoxic respiratory failure and pneumothorax. Review of Systems: 14-point review of systems negative unless otherwise noted above. Past Medical History: Diabetes, anxiety, depression, pneumonia. Past Surgical History: Cholecystectomy Medications: Reviewed. Allergies: No known drug allergies. Family History: No family history of premature CAD. No family history of lung disorders. Social History: Smoker, smokes 1 pack per day. Alcohol use: Prior drinker, quit. Admits to marijuana use previously. Allergies: Coded Allergies: NO KNOWN ALLERGIES (Unverified , 06/15/15) Current Medications Current Medications Medications (Trade) Dose Ordered Sig/Parrish Route PRN Reason Start Time Stop Time Status Last Admin Ceftriaxone Sodium 50 ml @ 100 mls/hr DAILY@09 IV 05/13/24 09:00 Azithromycin 250 ml @ 125 mls/hr DAILY IV 05/12/24 10:00 05/12/24 10:03 Acetaminophen/ Hydrocodone Bitart ([place] 5/325MG Tab) 1 tab Q4HP PRN PO MODERATE PAIN (4-6 PAIN SCALE) 05/12/24 07:45 05/12/24 21:56 Ondansetron HCl (Zofran) 4 mg Q4HP PRN IV NAUSEA / VOMITING 05/12/24 07:45 Enoxaparin Sodium (Lovenox) 40 mg DAILY SC 05/12/24 10:00 05/12/24 10:02 Acetaminophen (Tylenol Tablet) 650 mg Q6HP PRN PO PAIN SCALE 1-3 OR TEMP>100.4 05/12/24 07:45 Morphine Sulfate 2 mg Q4HPRN PRN IV SEVERE PAIN (7-10 PAIN SCALE) 05/12/24 07:45 05/12/24 19:56 Nitroglycerin (Ntrostat Sublingual) 0.4 mg Q5MINP PRN SL FOR CHEST PAIN 05/12/24 07:45 Morphine Sulfate 2 mg Q30M PRN IV FOR CHEST PAIN 05/12/24 07:45 Diagnostic Test (Pha) (Accu-Chek Comfort Curve T) 1 strip ACHS 05/12/24 11:30 05/12/24 21:51 Insulin Human Regular (InsuLIN R) ACHS SC 05/12/24 11:30 05/12/24 11:51 DC 05/12/24 11:48 Dextrose 50 ml UD PRN IV Blood Sugar LESS THAN 60 05/12/24 07:45 Sodium Chloride 1,000 ml @ 100 mls/hr Q10H IV 05/12/24 08:00 05/12/24 18:10 Insulin Human Regular (InsuLIN R) HS SC 05/12/24 22:00 05/12/24 21:51 Insulin Human Regular (InsuLIN R) AC SC 05/12/24 17:00 05/12/24 18:08 Albuterol (Ventolin Medneb) 2.5 mg Q4HR NEB 05/12/24 14:00 05/12/24 22:38 Ipratropium [place] (Atrovent Medneb) 0.5 mg Q4HR NEB 05/12/24 14:00 05/12/24 22:38 Lorazepam (Ativan Inj) 1 mg Q8HP PRN IV ANXIETY 05/12/24 14:00 05/12/24 13:59 Methylprednisolone Sodium Succinate (Solu Medrol) 60 mg Q8HR IV 05/12/24 22:00 05/12/24 21:51 Methylprednisolone Sodium Succinate (Solu Medrol) 60 mg NOW IV 05/12/24 14:45 05/12/24 15:01 DC Vital Signs Vital Signs Date Time Temp Pulse Resp B/P (MAP) Pulse Ox O2 Delivery O2 Flow Rate FiO2 05/12/24 22:19 78 22 137/76 05/12/24 19:05 100 70.0 85 05/12/24 14:48 Facial BiPAP Mask 05/12/24 08:00 98.2 98.2 Physical Exam Gen.: Patient lying in bed in no apparent distress. On supplemental oxygen. Head: Normocephalic, atraumatic. Eyes: EOMI/PERRLA. Ears: Normal hearing. Normal anatomy. Neck/trachea: Trachea midline, supple. Nose: Normal external anatomy. Mouth: Moist mucous membranes. Chest: Decreased air entry bilaterally. No wheezing or rhonchi. Cardiovascular: Positive S1, positive S2. Regular rate and rhythm. Abdomen: Positive bowel sounds in all 4 quadrants. Soft, non-tender, non- distended. : Deferred. Rectal: Deferred. Skin: Warm, dry. Intact. Extremities: 2+ radial pulses bilaterally. No lower extremity edema. Neuro: Awake, alert, oriented x3. No gross motor or sensory deficits. Cranial nerves II through XII intact. Gait not assessed. Labs/Diagnostic Data Labs Test 05/12/24 21:35 05/12/24 16:55 05/12/24 13:30 05/12/24 02:36 Range/Units POC Glucose 152 H 70-106 mg/dl Blood Gas Specimen Type Arterial Blood Gas Sample Site Right radial Blood Gas Patient Temperature 37.0 Arterial Blood Date Drawn [id number] Arterial Blood pH 7.427 7.350-7.450 Arterial Blood Partial Pressure CO2 39.9 32.0-45.0 mmHg Arterial Blood Partial Pressure O2 297.3 H 83.0-108.0 mmHg Arterial Blood HCO3 25.7 21.0-28.0 mmol/L Arterial Blood Oxygen Saturation 99.7 H 94.0-98.0 % Arterial Blood Base Excess 1.3 -2.0-3.0 mmol/L Arterial Blood Oxyhemoglobin 98.4 H 94.0-98.0 % Arterial Blood Carboxyhemoglobin 0.8 0.5-1.5 % Arterial Blood Methemoglobin 0.5 0.0-1.5 % Kt Test Yes Blood Gas Total Hemoglobin 12.50 12.0-16.0 g/dL Blood Gas Liter Flow 70.00 Blood Gas Modality High flow FiO2 % 100.0 D-Dimer, Quantitative 1.73 H 0.0-0.49 mg/L FEU Lactic Acid Level 3.1 *H 0.4-2.0 mmol/L Test 05/12/24 01:55 05/12/24 01:35 05/12/24 00:27 05/12/24 00:00 Range/Units Blood Gas Set Respiration Rate 12.0 Blood Gas Spontaneous Rate 19 Blood Gas Tidal Volume 620.0 Blood Gas EPAP 5 Blood Gas IPAP 12 Troponin I High Sensitivity 5 </=34 ng/L White Blood Count 15.5 H 4.4-10.8 10^3/uL Red Blood Count 4.74 4.0-5.20 10^6/uL Hemoglobin 12.9 12.2-16.2 g/dL Hematocrit 39.1 36.0-46.0 % Mean Corpuscular Volume 82.5 80.0-100.0 fL Mean Corpuscular Hemoglobin 27.3 L 28.0-32.0 pg Mean Corpuscular Hemoglobin Concent 33.1 32.0-36.0 g/dL Red Cell Distribution Width 14.4 H 11.8-14.3 % Platelet Count 614 H 140-450 10^3/uL Mean Platelet Volume 7.0 6.9-10.8 fL Neutrophils (%) (Auto) 37.0-80.0 % Lymphocytes (%) (Auto) 10.0-50.0 % Monocytes (%) (Auto) 0.0-12.0 % Basophils (%) (Auto) 0.0-2.0 % Neutrophils # (Auto) 1.6-8.6 10 ^3/uL Lymphocytes # (Auto) 0.4-5.4 10 ^3/uL Monocytes # (Auto) 0-1.3 10 ^3/uL Differential Total Cells Counted 100.0 100 Neutrophils % (Manual) 84 H 37.0-80.0 Band Neutrophils % (Manual) 3 Lymphocytes % (Manual) 10 10.0-50.0 Monocytes % (Manual) 3 0-12 Eosinophils % (Manual) 0 0-7 Basophils % (Manual) 0 0.0-2.0 Metamyelocytes % (manual) 0 Myelocytes % (Manual) 0 Promyelocytes % (Manual) 0 Blast Cells % (Manual) 0 Reactive Lymphocytes 0 Platelet Estimate Increased Sodium Level 135 L 136-145 mmol/L Potassium Level 4.1 3.5-5.1 mmol/L Chloride Level 98 98-107 mmol/L Carbon Dioxide Level 28 20-31 mmol/L Anion Gap 9 5-15 Blood Urea Nitrogen 31 H 9-23 mg/dL Creatinine 0.89 0.550-1.02 mg/dL Glomerular Filtration Rate Calc 72 >90 mL/min BUN/Creatinine Ratio 34.8 H 10.0-20.0 Serum Glucose 367 H 74-106 mg/dL Hemoglobin A1c > 14.0 H <5.7 % A1C Calcium Level 9.0 8.7-10.4 mg/dL Magnesium Level 1.3 L 1.6-2.6 mg/dL Total Bilirubin 0.3 0.2-1.0 mg/dL Aspartate Amino Transferase (AST) 10 L 13-40 U/L Alanine Aminotransferase (ALT) 15 7-40 U/L Alkaline Phosphatase 104 46-116 U/L B-Type Natriuretic Peptide 123.46 0-100 pg/mL Total Protein 6.1 5.7-8.2 g/dL Albumin 3.6 3.2-4.8 g/dL Influenza Type A Antigen Negative Negative Influenza Type B Antigen Negative Negative SARS-CoV-2 Antigen (Rapid) Negative NEGATIVE Assessment Impression: Acute on chronic hypoxic respiratory failure Dependence on supplemental oxygen Moderate right pneumothorax Sepsis Hypomagnesemia Nicotine dependence Atelectasis Plan: On high flow supplemental oxygen Titrate to keep O2 sats above 92%. Taper O2 as tolerated. Placed second chest tube Placed chest tube to -30cm H2O Chest x-ray at 2231 hours reviewed; interval placement of chest tube at right lung apex. No residual pneumothorax. Airspace consolidation again noted in right upper lobe. No pleural effusion. Continue IV steroids Continue antibiotics Follow up cultures Accu-Cheks, ISS IV fluids with NS at 100 ml/hr. Monitor renal function. Monitor electrolytes. Supplement as necessary. Magnesium supplementation Monitor ins and outs. Smoking cessation discussed for greater than 10 minutes DVT prophylaxis. Prognosis: Poor given patient's multiple co-morbidities. Condition: Critical Rest of plan per hospitalist and other consultants. A total of 35 minutes of critical care time was spent reviewing the patient record, examining the patient, making a diagnostic and therapeutic plan, discussing this plan with the medical personnel, following up on diagnostic studies and following the patient for clinical stability excluding any and all procedures. At least 50% of this time was spent in direct, [id number] contact. Thank you Dr. Eller for allowing me to participate in this patient's care. Further recommendations will depend on the patient's clinical course. Please do not hesitate to contact me if you have any questions or concerns. This medical document was created using an electronic medical record system with exozet dictation system. Although these documentations are being carefully reviewed, there may still be some phonetic and typographical changes. The errors are purely typographical, due to imperfection on the software program, and do not reflect any compromise in the patient's medical care. Plan discussed with: Patient, Other (RN/MD Eller) GILBERT GARCIA MD May 12, 2024 22:52
--- NOTE | 2024-05-12 23:03 | DVH ---
CHEST RADIOGRAPH Indication: Confirmation of correct new chest tube placement. Technique: Single frontal view of the chest was obtained COMPARISON: XY CHEST PORTABLE on DOS: 05/12/24, XY CHEST XRAY 1 VIEW on DOS: 05/12/24, XY CHEST XRAY 1 EW on DOS: 05/12/24, XY CHEST XRAY 1 VIEW on DOS: 05/12/24, XY CHEST PORTABLE on DOS: 05/12/24 FINDINGS: IMPRESSION: Interval placement of chest tube at right lung apex. No residual pneumothorax. Airspace consolidation again noted in right upper lobe. No pleural effusion.
[2024-05-13] VITALS (24 sets, daily range): BP systolic 128–170; BP diastolic 60–92; PULSE 74–99; RESP 18–24; TEMP 97.7; O2SAT 91–100
[2024-05-13 05:26] LABS: Urine Bacteria None Seen /hpf (None Seen)
[2024-05-13 05:53] LABS: Urine Blood Negative /uL (Negative); Urine Clarity Clear (Clear); Urine Color Light-Yellow (Yellow); Urine Protein, UAD TRACE (Negative); Urine Specific Gravity 1.019 (1.001-1.035); Urine Squamous Epithelial Cell None Seen /hpf (<5); Urine Urobilinogen Normal (Negative); Urine WBC 2 /HPF (0-5); Urine pH 6.5 (5.0-9.0)
[2024-05-13 08:00] LABS: Basophils # (auto) 0 10 ^3/uL (0-0.2); Eosinophils # (auto) 0 10 ^3/uL (0-0.8); Lymphocytes # (auto) 0.4 10 ^3/uL (0.4-5.4); Lymphocytes % (auto) 2.9 % (10.0-50.0); Monocytes # (auto) 0.3 10 ^3/uL (0-1.3); Red Blood Cells 4.06 10^6/uL (4.0-5.20)
[2024-05-13 08:02] LABS: Basophils % (auto) 0.3 % (0.0-2.0); Hematocrit 34.3 % (36.0-46.0); Hemoglobin 11.1 g/dL (12.2-16.2); Mean Corpuscular Hemoglobin 27.3 pg (28.0-32.0); Mean Corpuscular Hgb Conc. 32.3 g/dL (32.0-36.0); Mean Corpuscular Volume 84.4 fL (80.0-100.0); Monocytes % (auto) 2.3 % (0.0-12.0); Neutrophils # (auto) 13.2 10 ^3/uL (1.6-8.6); Neutrophils % (auto) 94.5 % (37.0-80.0); Platelet Count (auto) 554 10^3/uL (140-450); Red Cell Distribution Width 14.3 % (11.8-14.3); White Blood Cell 13.9 10^3/uL (4.4-10.8)
[2024-05-13 08:16] LABS: Alanine Aminotransferase 14 U/L (7-40); Albumin 3.1 g/dL (3.2-4.8); Alkaline Phosphatase 98 U/L (46-116); Anion Gap 7 (5-15); Aspartate Aminotransferase 11 U/L (13-40); BUN/Creatinine Ratio 28.6 (10.0-20.0); Bilirubin, Total 0.2 mg/dL (0.2-1.0); Blood Urea Nitrogen 22 mg/dL (9-23); Calcium 8.2 mg/dL (8.7-10.4); Carbon Dioxide 26 mmol/L (20-31); Chloride 105 mmol/L (98-107); Glucose 325 mg/dL (74-106); Potassium 4.2 mmol/L (3.5-5.1); Sodium 138 mmol/L (136-145); Total Protein 5.5 g/dL (5.7-8.2)
[2024-05-13] MEDS: cefTRIAXone 1GM/50ML D5W 50 ML IV SCH (09:33)
--- NOTE | 2024-05-13 11:48 | DVHPN2 ---
Reviewed: Care Plan, H&P, Labs, Medications, Previous Orders, Radiology Changes from previous H/P or p: No Changes Eyes: No Pain, No Vision change, No Conjunctivae inflammation, No Eyelid inflammation, No Other, No Redness ENT: No Ear pain, No Ear discharge, No Nose pain, No Nose discharge, No Nose congestion, No Mouth pain, No Mouth swelling, No Throat pain, No Throat swelling, No Other Cardiovascular: No Chest Pain, No Palpitations, No Orthopnea, No Paroxysmal Noc. Dyspnea, No Edema, No Lt Headedness, No Other Respiratory: No Cough, No Dry; Shortness of breath; No SOB with excertion, No Wheezing, No Hemoptysis, No Pleuritic Pain, No Sputum, No Other Gastrointestinal: No Nausea, No Vomiting, No Abdominal Pain, No Diarrhea, No Constipation, No Melena, No Hematochezia, No Other Genitourinary: No Dysuria, No Frequency, No Incontinence, No Hematuria, No Retention, No Other Musculoskeletal: No other, No neck pain, No shoulder pain, No arm pain, No back pain, No hand pain, No leg pain, No foot pain Skin: No Rash, No Lesions, No Jaundice, No Bruising, No Other Objective Vitals Vital Signs Date Time Temp Pulse Resp B/P (MAP) Pulse Ox O2 Delivery O2 Flow Rate FiO2 05/13/24 11:10 97 20 138/66 05/13/24 10:39 98 Nasal Cannula* 4 36 05/12/24 08:00 98.2 98.2 Intake/Output Intake and Output 05/13/24 07:00 Intake Total 1780 ml Output Total 510 ml Balance 1270 ml Intake Oral 80 ml IV Total 1700 ml Output Urine Total 475 ml Chest Tube Drainage Total 35 ml Medications Current Medications Medications Dose Ordered Sig/Parrish Route Start Time Stop Time Status Last Admin Dose Admin Ceftriaxone Sodium 50 ml @ 100 mls/hr DAILY@09 IV 05/13/24 09:00 05/13/24 09:33 100 MLS/HR Azithromycin 250 ml @ 125 mls/hr DAILY IV 05/12/24 10:00 05/13/24 10:42 125 MLS/HR Acetaminophen/ Hydrocodone Bitart 1 tab Q4HP PRN PO 05/12/24 07:45 05/12/24 21:56 1 TAB Ondansetron HCl 4 mg Q4HP PRN IV 05/12/24 07:45 Enoxaparin Sodium 40 mg DAILY SC 05/12/24 10:00 05/13/24 10:42 40 MG Acetaminophen 650 mg Q6HP PRN PO 05/12/24 07:45 Morphine Sulfate 2 mg Q4HPRN PRN IV 05/12/24 07:45 05/13/24 11:10 2 MG Nitroglycerin 0.4 mg Q5MINP PRN SL 05/12/24 07:45 Morphine Sulfate 2 mg Q30M PRN IV 05/12/24 07:45 Diagnostic Test (Pha) 1 strip ACHS 05/12/24 11:30 05/13/24 11:44 1 STRIP Dextrose 50 ml UD PRN IV 05/12/24 07:45 Sodium Chloride 1,000 ml @ 100 mls/hr Q10H IV 05/12/24 08:00 05/13/24 03:42 100 MLS/HR Insulin Human Regular HS SC 05/12/24 22:00 05/12/24 21:51 2 UNITS Insulin Human Regular AC SC 05/12/24 17:00 05/13/24 05:50 12 UNITS Albuterol 2.5 mg Q4HR NEB 05/12/24 14:00 05/13/24 10:29 2.5 MG Ipratropium [place] 0.5 mg Q4HR NEB 05/12/24 14:00 05/13/24 10:29 0.5 MG Lorazepam 1 mg Q8HP PRN IV 05/12/24 14:00 05/13/24 10:54 1 MG Methylprednisolone Sodium Succinate 60 mg Q8HR IV 05/12/24 22:00 05/13/24 05:39 60 MG Laboratory Results Laboratory Tests 05/13/24 07:37 Chemistry Test 05/13/24 07:37 Albumin 3.1 g/dL (3.2-4.8) L Calcium Level 8.2 mg/dL (8.7-10.4) L Total Protein 5.5 g/dL (5.7-8.2) L Coagulation Test 05/12/24 13:30 D-Dimer, Quantitative 1.73 mg/L FEU (0.0-0.49) H LFT Test 05/13/24 07:37 Alanine Aminotransferase (ALT) 14 U/L (7-40) Alkaline Phosphatase 98 U/L (46-116) Aspartate Amino Transferase (AST) 11 U/L (13-40) L Total Bilirubin 0.2 mg/dL (0.2-1.0) Urinalysis Test 05/13/24 03:34 Urine Color Light-yellow (Yellow) Urine Clarity Clear (Clear) Urine pH 6.5 (5.0-9.0) Urine Specific [place] 1.019 (1.001-1.035) Urine Protein Trace (Negative) H Urine Ketones Negative (Negative) Urine Blood Negative /uL (Negative) Urine Nitrite Negative (Negative) Urine Bilirubin Negative (Negative) Urine Urobilinogen Normal mg/dL (Negative) Urine Leukocyte Esterase Negative /uL (Negative) Urine RBC <1 /hpf (0 - 4) Urine Microscopic WBC 2 /HPF (0-5) Urine Squamous Epithelial Cells None seen /hpf (<5) Urine Bacteria None seen /hpf (None Seen) Urine Glucose 1+ mg/dL (Normal) H Blood Gas Results Test 05/12/24 16:55 Arterial Blood pH 7.427 (7.350-7.450) FiO2 % 100.0 Labs and/or images reviewed: Labs reviewed by me, Image(s) reviewed by me Assessment/Plan Assessment/Plan Septic shock Secondary to pneumonia with elevated white count shortness of breath and altered mental status Acute Hypoxic respiratory failure: Oxygen by nasal cannula Acute right pneumothorax status post chest tube placement in the ER by Dr. Juan Right-sided pneumonia consult for Dr. Juan Rocephin azithromycin med-nebs Uncontrolled diabetes with glucose of 410; insulin aggressive sliding scale diabetic education , A1c more than 14 Acute lactic acidosis Acute metabolic acidosis Anxiety Depression Patient was seen in [facility] three days ago for pneumonia Time spent 70 minutes Patient is full code Advanced care planning time 20 minutes Prognosis poor Patient lives alone in [place] Plan discussed with: Patient My Orders Orders - REYES LANE MD Procedure Category Date Status Time *Consult CONS 05/12/24 Transmitted / 12:53 Albuterol Medneb PHA 05/12/24 In Process (Ventolin Medneb) 14:00 Ipratropium Medneb PHA 05/12/24 In Process (Atrovent Medneb) 14:00 Lorazepam 2mg/Ml Inj PHA 05/12/24 In Process (Ativan Inj) 14:00 Methylprednisolone PHA 05/12/24 In Process Sod Succ (Solu Medrol 22:00 Date of Service: May 13, 2024 Billing Provider: REYES LANE MD Common Visit Codes: [id number] CARE 30-[address] MD May 13, 2024 11:48
[2024-05-13] MEDS: INSULIN LANTUS (GLARGINE) 1 /0.01ml (100units/ml) SC ONE (12:39)
[2024-05-13] MEDS ORDERED: DEXTROSE (50%) 50ML SYRG IV PRN (17:30)
[2024-05-13] MEDS ORDERED: InsuLIN REG 1unit/0.01ml Soln (100units/ml) SC SCH ×2 (17:30→22:00)
[2024-05-13] MEDS: ACCU-CHEK COMFORT CURVE STRIP VI SCH ×2 (17:38→18:22)
[2024-05-13] MEDS: InsuLIN REG 1unit/0.01ml Soln (100units/ml) SC SCH (18:28)
--- NOTE | 2024-05-13 19:46 | DVH ---
CHEST RADIOGRAPH Indication: CHEST TUBE Technique: Single frontal view of the chest was obtained COMPARISON: XY CHEST XRAY 1 VIEW on DOS: 05/12/24, XY CHEST PORTABLE on DOS: 05/12/24, XY CHEST XRAY 1 EW on DOS: 05/12/24, XY CHEST XRAY 1 VIEW on DOS: 05/12/24, XY CHEST XRAY 1 VIEW on DOS: 05/12/24 FINDINGS: IMPRESSION: Chest tube again noted at right lung apex. No pneumothorax evident. Airspace consolidation again noted in bilateral upper lobes greater on the right side. No pleural eff usion.
[2024-05-13] MEDS: ONDANSETRON HCL 4 MG/2 ML VIAL IV PRN (22:37)
--- NOTE | 2024-05-13 23:13 | DVHPN2 ---
Progress Note - Dictate Date Seen: May 13, 2024 Medical Necessity Reason Pt with a Central, PICC or Fol: Yes The following are medically ne: Central Line Subjective Patient seen and examined at bedside. Sedated, intubated on mechanical ventilator. Overnight events reviewed. vital signs Vital Sign Date Time Temp Pulse Resp B/P (MAP) Pulse Ox O2 Delivery O2 Flow Rate FiO2 05/13/24 22:38 87 14 154/79 05/13/24 22:30 94 05/13/24 19:30 98.8 98.8 05/13/24 19:20 Nasal Cannula* 2 28 Total Intake and Output 05/12/24 05/12/24 05/13/24 15:00 23:00 07:00 Intake Total 300 ml 600 ml 880 ml Output Total 510 ml Balance 300 ml 600 ml 370 ml medications Current Medications Medications Dose Ordered Sig/Parrish Route Start Time Stop Time Status Last Admin Dose Admin Ceftriaxone Sodium 50 ml @ 100 mls/hr DAILY@09 IV 05/13/24 09:00 05/13/24 09:33 100 MLS/HR Azithromycin 250 ml @ 125 mls/hr DAILY IV 05/12/24 10:00 05/13/24 10:42 125 MLS/HR Acetaminophen/ Hydrocodone Bitart 1 tab Q4HP PRN PO 05/12/24 07:45 05/12/24 21:56 1 TAB Ondansetron HCl 4 mg Q4HP PRN IV 05/12/24 07:45 05/13/24 22:37 4 MG Enoxaparin Sodium 40 mg DAILY SC 05/12/24 10:00 05/13/24 10:42 40 MG Acetaminophen 650 mg Q6HP PRN PO 05/12/24 07:45 Morphine Sulfate 2 mg Q4HPRN PRN IV 05/12/24 07:45 05/13/24 22:38 2 MG Nitroglycerin 0.4 mg Q5MINP PRN SL 05/12/24 07:45 Morphine Sulfate 2 mg Q30M PRN IV 05/12/24 07:45 Sodium Chloride 1,000 ml @ 100 mls/hr Q10H IV 05/12/24 08:00 05/13/24 14:30 100 MLS/HR Albuterol 2.5 mg Q4HR NEB 05/12/24 14:00 05/13/24 18:26 2.5 MG Ipratropium [place] 0.5 mg Q4HR NEB 05/12/24 14:00 05/13/24 18:26 0.5 MG Lorazepam 1 mg Q8HP PRN IV 05/12/24 14:00 05/13/24 10:54 1 MG Methylprednisolone Sodium Succinate 60 mg Q8HR IV 05/12/24 22:00 05/13/24 22:22 60 MG Dextrose 50 ml UD PRN IV 05/13/24 17:30 Diagnostic Test (Pha) 1 strip Q4H 05/13/24 18:10 05/13/24 22:28 1 STRIP Insulin Human Regular Q4H SC 05/13/24 18:11 05/13/24 22:36 20 UNITS objective Gen.: Patient lying in bed in medical ICU. Sedated, intubated on mechanical ventilator. Head: Normocephalic, atraumatic. Eyes: PERRLA. Ears: Normal external anatomy. Throat: Endotracheal tube and orogastric tube in place. Neck: Supple, trachea midline. Chest: Transmitted breath sounds bilaterally. Decreased air entry bilaterally. No wheezing. Bibasilar crackles. Cardiovascular: Positive S1, positive S2. Regular rate and rhythm. Abdomen: Positive bowel sounds in all 4 quadrants. Soft, nontender, nondistended. : Tatum in place. Normal external genitalia. Rectal: Deferred. Skin: Warm, dry. Intact. Extremities: 2+ radial pulses bilaterally. No lower extremity edema. Neuro: Sedated. laboratory and microbiology Laboratory Tests 05/13/24 07:37 Test 05/13/24 07:37 Range/Units Serum Glucose 325 H 74-106 mg/dL Assessment/Plan Impression: Acute on chronic hypoxic respiratory failure On mechanical ventilator Pneumonia ARDS Mucous plugging Atelectasis Moderate right pneumothorax Sepsis Hypomagnesemia Nicotine dependence Events: Seen on 4 LPM Oxymizer - improved O2 requirements Taper O2 as tolerated Chest tube to suction Chest x-ray reviewed, demonstrates no pneumothorax. Incentive spirometry IV fluids with NS at 100 ml/hr Magnesium supplementation Patient required emergent intubation due to respiratory distress. Patient underwent central line placement She was intubated, placed on mechanical ventilator with PEEP 14, FiO2 100% Placed on pressors for hemodynamic support Levophed 6 mcg/min Titrate to keep mean arterial pressure greater than 65 mmHg Continue antibiotics Updated patient's . Labs and imaging reviewed. Rest of plan as noted below. Plan: S/p intubation, on mechanical ventilator Titrate FIO2 to keep O2 saturation above 90%. VAP bundle. Daily ABG and CXR while intubated Sedate for ventilator synchrony Pressors for hemodynamic support Titrate to keep mean arterial pressure greater than 65 mmHg. Chest tube to suction - monitor output Continue IV steroids Continue antibiotics Follow up cultures Accu-Cheks, ISS IV fluids with NS at 100 ml/hr. Monitor renal function. Monitor electrolytes. Supplement as necessary. Magnesium supplementation Monitor ins and outs. Smoking cessation discussed for greater than 10 minutes DVT prophylaxis. Prognosis: Poor given patient's multiple co-morbidities. Condition: Critical Rest of plan per hospitalist and other consultants. A total of 35 minutes of critical care time was spent reviewing the patient record, examining the patient, making a diagnostic and therapeutic plan, discussing this plan with the medical personnel, following up on diagnostic studies and following the patient for clinical stability excluding any and all procedures. At least 50% of this time was spent in direct, [id number] contact. Thank you Dr. Eller for allowing me to participate in this patient's care. Further recommendations will depend on the patient's clinical course. Please do not hesitate to contact me if you have any questions or concerns. This medical document was created using an electronic medical record system with [employer] dictation system. Although these documentations are being carefully reviewed, there may still be some phonetic and typographical changes. The errors are purely typographical, due to imperfection on the software program, and do not reflect any compromise in the patient's medical care. Plan discussed with: Spouse, Other (RN) GILBERT GARCIA MD May 13, 2024 23:13
[2024-05-14] VITALS (21 sets, daily range): BP systolic 142–168; BP diastolic 74–93; PULSE 61–91; RESP 16–24; TEMP 97.5–97.9; O2SAT 91–100
[2024-05-14] MEDS: ACETAMINOPHEN 325 MG TAB PO PRN (01:04)
--- NOTE | 2024-05-14 08:46 | DVHPN2 ---
Reviewed: Care Plan, H&P, Labs, Medications, Previous Orders, Radiology Changes from previous H/P or p: No Changes Eyes: No Pain, No Vision change, No Conjunctivae inflammation, No Eyelid inflammation, No Other, No Redness ENT: No Ear pain, No Ear discharge, No Nose pain, No Nose discharge, No Nose congestion, No Mouth pain, No Mouth swelling, No Throat pain, No Throat swelling, No Other Cardiovascular: No Chest Pain, No Palpitations, No Orthopnea, No Paroxysmal Noc. Dyspnea, No Edema, No Lt Headedness, No Other Respiratory: No Cough, No Dry; Shortness of breath; No SOB with excertion, No Wheezing, No Hemoptysis, No Pleuritic Pain, No Sputum, No Other Gastrointestinal: No Nausea, No Vomiting, No Abdominal Pain, No Diarrhea, No Constipation, No Melena, No Hematochezia, No Other Genitourinary: No Dysuria, No Frequency, No Incontinence, No Hematuria, No Retention, No Other Musculoskeletal: No other, No neck pain, No shoulder pain, No arm pain, No back pain, No hand pain, No leg pain, No foot pain Skin: No Rash, No Lesions, No Jaundice, No Bruising, No Other Objective Vitals Vital Signs Date Time Temp Pulse Resp B/P (MAP) Pulse Ox O2 Delivery O2 Flow Rate FiO2 05/14/24 08:37 71 05/14/24 08:00 97.6 19 151/80 (103) 94 97.6 05/14/24 07:30 Nasal Cannula* 2 28 Intake/Output Intake and Output 05/14/24 07:00 Intake Total 3950 ml Output Total 1815 ml Balance 2135 ml Intake Oral 500 ml IV Total 3450 ml Output Urine Total 1800 ml Chest Tube Drainage Total 15 ml Medications Current Medications Medications Dose Ordered Sig/Parrish Route Start Time Stop Time Status Last Admin Dose Admin Ceftriaxone Sodium 50 ml @ 100 mls/hr DAILY@09 IV 05/13/24 09:00 05/13/24 09:33 100 MLS/HR Azithromycin 250 ml @ 125 mls/hr DAILY IV 05/12/24 10:00 05/13/24 10:42 125 MLS/HR Acetaminophen/ Hydrocodone Bitart 1 tab Q4HP PRN PO 05/12/24 07:45 05/14/24 05:33 1 TAB Ondansetron HCl 4 mg Q4HP PRN IV 05/12/24 07:45 05/13/24 22:37 4 MG Enoxaparin Sodium 40 mg DAILY SC 05/12/24 10:00 05/13/24 10:42 40 MG Acetaminophen 650 mg Q6HP PRN PO 05/12/24 07:45 05/14/24 01:04 650 MG Morphine Sulfate 2 mg Q4HPRN PRN IV 05/12/24 07:45 05/14/24 07:47 2 MG Nitroglycerin 0.4 mg Q5MINP PRN SL 05/12/24 07:45 Morphine Sulfate 2 mg Q30M PRN IV 05/12/24 07:45 Sodium Chloride 1,000 ml @ 100 mls/hr Q10H IV 05/12/24 08:00 05/14/24 00:12 100 MLS/HR Albuterol 2.5 mg Q4HR NEB 05/12/24 14:00 05/14/24 06:31 2.5 MG Ipratropium [place] 0.5 mg Q4HR NEB 05/12/24 14:00 05/14/24 06:31 0.5 MG Lorazepam 1 mg Q8HP PRN IV 05/12/24 14:00 05/13/24 10:54 1 MG Methylprednisolone Sodium Succinate 60 mg Q8HR IV 05/12/24 22:00 05/14/24 05:32 60 MG Dextrose 50 ml UD PRN IV 05/13/24 17:30 Diagnostic Test (Pha) 1 strip Q4H 05/13/24 18:10 05/14/24 05:39 1 STRIP Insulin Human Regular Q4H SC 05/13/24 18:11 05/14/24 05:43 4 UNITS Laboratory Results Laboratory Tests 05/13/24 07:37 Urinalysis Test 05/13/24 03:34 Urine Color Light-yellow (Yellow) Urine Clarity Clear (Clear) Urine pH 6.5 (5.0-9.0) Urine Specific [place] 1.019 (1.001-1.035) Urine Protein Trace (Negative) H Urine Ketones Negative (Negative) Urine Blood Negative /uL (Negative) Urine Nitrite Negative (Negative) Urine Bilirubin Negative (Negative) Urine Urobilinogen Normal mg/dL (Negative) Urine Leukocyte Esterase Negative /uL (Negative) Urine RBC <1 /hpf (0 - 4) Urine Microscopic WBC 2 /HPF (0-5) Urine Squamous Epithelial Cells None seen /hpf (<5) Urine Bacteria None seen /hpf (None Seen) Urine Glucose 1+ mg/dL (Normal) H Microbiology Microbiology Date/Time Source Procedure Growth Status 05/12/24 15:33 Blood Blood Culture - Preliminary NO GROWTH AFTER 24 HOURS OF INCUBATION. Resulted Labs and/or images reviewed: Labs reviewed by me, Image(s) reviewed by me Assessment/Plan Assessment/Plan Septic shock Secondary to community-acquired pneumonia with elevated white count shortness of breath and altered mental status Acute Hypoxic respiratory failure: Oxygen by nasal cannula 4 liters/minute Acute right pneumothorax status post chest tube placement in the ER by Dr. Juan Right-sided pneumonia consult for Dr. Drake Jaimeeprenetta azithromycin med-nebs Uncontrolled diabetes with glucose of 410; insulin aggressive sliding scale diabetic education , A1c more than 14 Acute lactic acidosis Acute metabolic acidosis Anxiety Depression Patient was seen in [facility] three days ago for pneumonia Time spent 70 minutes Patient is full code Advanced care planning time 20 minutes Prognosis poor Patient lives alone in [place] Blood cultures one set positive for Gram-positive cocci in clusters, other set is negative, possible contamination Plan discussed with: Patient My Orders Orders - REYES LANE MD Procedure Category Date Status Time Ac Aggressive Insulin MIGUEL ANGEL 05/13/24 In Process Scale (N 12:04 Hs Insulin Scale MIGUEL ANGEL 05/13/24 In Process 12:04 Dextrose 50% Syringe PHA 05/13/24 In Process 17:30 Glucose Blood PHA 05/13/24 In Process (Accu-Chek Comfort 18:10 Insulin R (Human) PHA 05/13/24 In Process (Insulin R) 18:11 Chest Portable XY 05/13/24 Resulted 18:51 Cardiac DIET 05/14/24 Transmitted Diet-2gna,Lofat,Lochol Breakfast Date of Service: May 14, 2024 Billing Provider: REYES LANE MD Common Visit Codes: [id number] CARE 30-[address] MD May 14, 2024 08:46
--- NOTE | 2024-05-14 10:04 | DVHPN2 ---
Progress Note - Dictate Date Seen: May 13, 2024 Medical Necessity Reason Pt with a Central, PICC or Fol: No Subjective Patient seen and examined at bedside. Remains on supplemental oxygen Overnight events reviewed. vital signs Vital Sign Date Time Temp Pulse Resp B/P (MAP) Pulse Ox O2 Delivery O2 Flow Rate FiO2 05/14/24 08:37 71 05/14/24 08:17 18 173/76 05/14/24 08:00 97.6 94 97.6 05/14/24 07:30 Nasal Cannula* 2 28 Total Intake and Output 05/13/24 05/13/24 05/14/24 15:00 23:00 07:00 Intake Total 1850 ml 1400 ml 700 ml Output Total 815 ml 1000 ml Balance 1850 ml 585 ml -300 ml medications Current Medications Medications Dose Ordered Sig/Parrish Route Start Time Stop Time Status Last Admin Dose Admin Ceftriaxone Sodium 50 ml @ 100 mls/hr DAILY@09 IV 05/13/24 09:00 05/14/24 09:29 100 MLS/HR Azithromycin 250 ml @ 125 mls/hr DAILY IV 05/12/24 10:00 05/14/24 09:30 125 MLS/HR Acetaminophen/ Hydrocodone Bitart 1 tab Q4HP PRN PO 05/12/24 07:45 05/14/24 05:33 1 TAB Ondansetron HCl 4 mg Q4HP PRN IV 05/12/24 07:45 05/13/24 22:37 4 MG Enoxaparin Sodium 40 mg DAILY SC 05/12/24 10:00 05/14/24 09:30 40 MG Acetaminophen 650 mg Q6HP PRN PO 05/12/24 07:45 05/14/24 01:04 650 MG Morphine Sulfate 2 mg Q4HPRN PRN IV 05/12/24 07:45 05/14/24 07:47 2 MG Nitroglycerin 0.4 mg Q5MINP PRN SL 05/12/24 07:45 Morphine Sulfate 2 mg Q30M PRN IV 05/12/24 07:45 Sodium Chloride 1,000 ml @ 100 mls/hr Q10H IV 05/12/24 08:00 05/14/24 00:12 100 MLS/HR Albuterol 2.5 mg Q4HR NEB 05/12/24 14:00 05/14/24 06:31 2.5 MG Ipratropium [place] 0.5 mg Q4HR NEB 05/12/24 14:00 05/14/24 06:31 0.5 MG Lorazepam 1 mg Q8HP PRN IV 05/12/24 14:00 05/14/24 09:30 1 MG Methylprednisolone Sodium Succinate 60 mg Q8HR IV 05/12/24 22:00 05/14/24 05:32 60 MG Dextrose 50 ml UD PRN IV 05/13/24 17:30 Diagnostic Test (Pha) 1 strip Q4H 05/13/24 18:10 05/14/24 05:39 1 STRIP Insulin Human Regular Q4H SC 05/13/24 18:11 05/14/24 05:43 4 UNITS objective Gen.: Patient lying in bed in no apparent distress. On supplemental oxygen. Head: Normocephalic, atraumatic. Eyes: EOMI/PERRLA. Ears: Normal hearing. Normal anatomy. Neck/trachea: Trachea midline, supple. Nose: Normal external anatomy. Mouth: Moist mucous membranes. Chest: Decreased air entry bilaterally. No wheezing or rhonchi. Cardiovascular: Positive S1, positive S2. Regular rate and rhythm. Abdomen: Positive bowel sounds in all 4 quadrants. Soft, non-tender, non- distended. : Deferred. Rectal: Deferred. Skin: Warm, dry. Intact. Extremities: 2+ radial pulses bilaterally. No lower extremity edema. Neuro: Awake, alert, oriented x3. No gross motor or sensory deficits. Cranial nerves II through XII intact. Gait not assessed. laboratory and microbiology Laboratory Tests 05/13/24 07:37 Test 05/13/24 07:37 Range/Units Serum Glucose 325 H 74-106 mg/dL Assessment/Plan Impression: Acute on chronic hypoxic respiratory failure Dependence on supplemental oxygen Moderate right pneumothorax Sepsis Hypomagnesemia Nicotine dependence Atelectasis Events: Transitioned off high flow O2 Currently on 4 LPM Oxymizer Improved O2 requirements. Chest x-ray showed no pneumothorax. Chest tube in place, to suction Continue bronchodilators Continue steroids Continue antibiotics IV fluids with NS at 100 ml/hr. Monitor renal function. Monitor electrolytes. Supplement as necessary. Magnesium supplementation Labs and imaging reviewed. Rest of plan as noted below. Plan: Supplemental oxygen Titrate to keep O2 sats above 92%. Placed second chest tube on 05/12/24 - chest tube placed to -30cm H2O Chest x-ray demonstrated interval placement of chest tube at right lung apex. No residual pneumothorax. Airspace consolidation again noted in right upper lobe. No pleural effusion. Patient improved post Alfonso chest tube placement. Continue IV steroids Continue antibiotics Follow up cultures Accu-Cheks, ISS IV fluids with NS at 100 ml/hr. Monitor renal function. Monitor electrolytes. Supplement as necessary. Magnesium supplementation Monitor ins and outs. Smoking cessation discussed for greater than 10 minutes DVT prophylaxis. Prognosis: Poor given patient's multiple co-morbidities. Condition: Critical Rest of plan per hospitalist and other consultants. A total of 35 minutes of critical care time was spent reviewing the patient record, examining the patient, making a diagnostic and therapeutic plan, discussing this plan with the medical personnel, following up on diagnostic studies and following the patient for clinical stability excluding any and all procedures. At least 50% of this time was spent in direct, [id number] contact. Thank you Dr. Eller for allowing me to participate in this patient's care. Further recommendations will depend on the patient's clinical course. Please do not hesitate to contact me if you have any questions or concerns. This medical document was created using an electronic medical record system with [employer] dictation system. Although these documentations are being carefully reviewed, there may still be some phonetic and typographical changes. The errors are purely typographical, due to imperfection on the software program, and do not reflect any compromise in the patient's medical care. Plan discussed with: Other (RN) Critical Care Time(min): 35 GILBERT GARCIA MD May 14, 2024 10:04
[2024-05-14] MEDS: cloNIDine HCL 0.1 MG TAB PO PRN (14:36)
[2024-05-14] MEDS: MORPHINE SULFATE INJ 2 MG/ml SYRG IV PRN (20:43)
--- NOTE | 2024-05-14 23:34 | DVHPN2 ---
Progress Note - Dictate Date Seen: May 14, 2024 Medical Necessity Reason Pt with a Central, PICC or Fol: No Subjective Patient seen and examined at bedside. Remains on supplemental oxygen Overnight events reviewed. vital signs Vital Sign Date Time Temp Pulse Resp B/P (MAP) Pulse Ox O2 Delivery O2 Flow Rate FiO2 05/14/24 22:30 77 20 98 05/14/24 22:24 Nasal Cannula 3.0 05/14/24 22:24 32 05/14/24 21:42 135/69 05/14/24 20:30 97.5 97.5 Total Intake and Output 05/13/24 05/13/24 05/14/24 15:00 23:00 07:00 Intake Total 1850 ml 1400 ml 700 ml Output Total 815 ml 1000 ml Balance 1850 ml 585 ml -300 ml medications Current Medications Medications Dose Ordered Sig/Parrish Route Start Time Stop Time Status Last Admin Dose Admin Ceftriaxone Sodium 50 ml @ 100 mls/hr DAILY@09 IV 05/13/24 09:00 05/14/24 09:29 100 MLS/HR Azithromycin 250 ml @ 125 mls/hr DAILY IV 05/12/24 10:00 05/14/24 09:30 125 MLS/HR Acetaminophen/ Hydrocodone Bitart 1 tab Q4HP PRN PO 05/12/24 07:45 05/14/24 13:41 1 TAB Ondansetron HCl 4 mg Q4HP PRN IV 05/12/24 07:45 05/13/24 22:37 4 MG Enoxaparin Sodium 40 mg DAILY SC 05/12/24 10:00 05/14/24 09:30 40 MG Acetaminophen 650 mg Q6HP PRN PO 05/12/24 07:45 05/14/24 01:04 650 MG Nitroglycerin 0.4 mg Q5MINP PRN SL 05/12/24 07:45 Morphine Sulfate 2 mg Q30M PRN IV 05/12/24 07:45 Sodium Chloride 1,000 ml @ 100 mls/hr Q10H IV 05/12/24 08:00 05/14/24 20:22 100 MLS/HR Albuterol 2.5 mg Q4HR NEB 05/12/24 14:00 05/14/24 22:24 2.5 MG Ipratropium [place] 0.5 mg Q4HR NEB 05/12/24 14:00 05/14/24 22:24 0.5 MG Lorazepam 1 mg Q8HP PRN IV 05/12/24 14:00 05/14/24 21:34 1 MG Methylprednisolone Sodium Succinate 60 mg Q8HR IV 05/12/24 22:00 05/14/24 21:33 60 MG Dextrose 50 ml UD PRN IV 05/13/24 17:30 Diagnostic Test (Pha) 1 strip Q4H 05/13/24 18:10 05/14/24 21:38 1 STRIP Insulin Human Regular Q4H SC 05/13/24 18:11 05/14/24 21:39 8 UNITS Clonidine HCl 0.2 mg Q6HP PRN PO 05/14/24 10:00 05/14/24 14:36 0.2 MG Morphine Sulfate 2 mg Q4HPRN PRN IV 05/14/24 20:30 05/14/24 20:43 2 MG objective Gen.: Patient lying in bed in no apparent distress. On supplemental oxygen. Head: Normocephalic, atraumatic. Eyes: EOMI/PERRLA. Ears: Normal hearing. Normal anatomy. Neck/trachea: Trachea midline, supple. Nose: Normal external anatomy. Mouth: Moist mucous membranes. Chest: Decreased air entry bilaterally. No wheezing or rhonchi. Cardiovascular: Positive S1, positive S2. Regular rate and rhythm. Abdomen: Positive bowel sounds in all 4 quadrants. Soft, non-tender, non- distended. : Deferred. Rectal: Deferred. Skin: Warm, dry. Intact. Extremities: 2+ radial pulses bilaterally. No lower extremity edema. Neuro: Awake, alert, oriented x3. No gross motor or sensory deficits. Cranial nerves II through XII intact. Gait not assessed. laboratory and microbiology Laboratory Tests 05/13/24 07:37 Test 05/13/24 07:37 Range/Units Serum Glucose 325 H 74-106 mg/dL Assessment/Plan Impression: Acute on chronic hypoxic respiratory failure Dependence on supplemental oxygen Moderate right pneumothorax Sepsis Hypomagnesemia Nicotine dependence Atelectasis Events: Remains on supplemental oxygen 4 LPM Oxymizer --> 3 LPM NC Improving O2 requirements. Chest x-ray showed no pneumothorax, [address] to water seal in the AM. Continue bronchodilators Continue IV steroids Continue antibiotics Accu-Cheks, ISS. IV fluids with NS at 100 ml/hr. Monitor renal function. Monitor electrolytes. Supplement as necessary. Labs and imaging reviewed. Rest of plan as noted below. Plan: Placed second chest tube on 05/12/24 - chest tube placed to -30cm H2O Chest x-ray demonstrated interval placement of chest tube at right lung apex. No residual pneumothorax. Airspace consolidation again noted in right upper lobe. No pleural effusion. Patient improved post Alfonso chest tube placement. Continue supplemental oxygen Titrate to keep O2 sats above 92%. Continue IV steroids Continue antibiotics Follow up cultures Accu-Cheks, ISS IV fluids with NS at 100 ml/hr. Monitor renal function. Monitor electrolytes. Supplement as necessary. Magnesium supplementation Monitor ins and outs. DVT prophylaxis - Lovenox. Prognosis: Guarded given patient's multiple co-morbidities. Rest of plan per hospitalist and other consultants. Thank you Dr. Eller for allowing me to participate in this patient's care. Further recommendations will depend on the patient's clinical course. Please do not hesitate to contact me if you have any questions or concerns. This medical document was created using an electronic medical record system with [employer] dictation system. Although these documentations are being carefully reviewed, there may still be some phonetic and typographical changes. The errors are purely typographical, due to imperfection on the software program, and do not reflect any compromise in the patient's medical care. Plan discussed with: Patient, Other (JORDAN Mcgill) GILBERT GARCIA MD May 14, 2024 23:34
[2024-05-15] VITALS (26 sets, daily range): BP systolic 127–152; BP diastolic 70–90; PULSE 66–92; RESP 15–22; TEMP 97.5–98; O2SAT 93–100
[2024-05-15] MEDS: MORPHINE SULFATE INJ 2 MG/ml SYRG IV PRN (06:12)
--- NOTE | 2024-05-15 10:44 | DVH ---
CHEST RADIOGRAPH Indication: Chest tube Technique: Single frontal view of the chest was obtained COMPARISON: None FINDINGS: Lines and Tubes: Right chest tubes in-situ. No appreciable pneumothorax. Lungs: Congestion Pleura: No effusion. No pneumothorax. Cardiomediastinal contours: Unremarkable Bones: Unremarkable IMPRESSION: No significant interval change.
--- NOTE | 2024-05-15 11:16 | DVHPN2 ---
Reviewed: Care Plan, H&P, Labs, Medications, Previous Orders, Radiology Changes from previous H/P or p: No Changes Eyes: No Pain, No Vision change, No Conjunctivae inflammation, No Eyelid inflammation, No Other, No Redness ENT: No Ear pain, No Ear discharge, No Nose pain, No Nose discharge, No Nose congestion, No Mouth pain, No Mouth swelling, No Throat pain, No Throat swelling, No Other Cardiovascular: No Chest Pain, No Palpitations, No Orthopnea, No Paroxysmal Noc. Dyspnea, No Edema, No Lt Headedness, No Other Respiratory: No Cough, No Dry; Shortness of breath; No SOB with excertion, No Wheezing, No Hemoptysis, No Pleuritic Pain, No Sputum, No Other Gastrointestinal: No Nausea, No Vomiting, No Abdominal Pain, No Diarrhea, No Constipation, No Melena, No Hematochezia, No Other Genitourinary: No Dysuria, No Frequency, No Incontinence, No Hematuria, No Retention, No Other Musculoskeletal: No other, No neck pain, No shoulder pain, No arm pain, No back pain, No hand pain, No leg pain, No foot pain Skin: No Rash, No Lesions, No Jaundice, No Bruising, No Other Objective Vitals Vital Signs Date Time Temp Pulse Resp B/P (MAP) Pulse Ox O2 Delivery O2 Flow Rate FiO2 05/15/24 09:46 98 Nasal Cannula 3.0 05/15/24 09:46 80 20 05/15/24 09:46 32 05/15/24 09:27 146/83 05/15/24 08:58 97.7 97.7 Intake/Output Intake and Output 05/15/24 07:00 Intake Total 1650 ml Output Total 3031 ml Balance -1381 ml Intake Oral 550 ml IV Total 1100 ml Output Urine Total 3000 ml Chest Tube Drainage Total 31 ml Medications Current Medications Medications Dose Ordered Sig/Parrish Route Start Time Stop Time Status Last Admin Dose Admin Ceftriaxone Sodium 50 ml @ 100 mls/hr DAILY@09 IV 05/13/24 09:00 05/15/24 09:04 100 MLS/HR Azithromycin 250 ml @ 125 mls/hr DAILY IV 05/12/24 10:00 05/15/24 10:07 125 MLS/HR Acetaminophen/ Hydrocodone Bitart 1 tab Q4HP PRN PO 05/12/24 07:45 05/14/24 13:41 1 TAB Ondansetron HCl 4 mg Q4HP PRN IV 05/12/24 07:45 05/13/24 22:37 4 MG Enoxaparin Sodium 40 mg DAILY SC 05/12/24 10:00 05/15/24 10:07 40 MG Acetaminophen 650 mg Q6HP PRN PO 05/12/24 07:45 05/14/24 01:04 650 MG Nitroglycerin 0.4 mg Q5MINP PRN SL 05/12/24 07:45 Morphine Sulfate 2 mg Q30M PRN IV 05/12/24 07:45 05/15/24 06:12 2 MG Sodium Chloride 1,000 ml @ 100 mls/hr Q10H IV 05/12/24 08:00 05/15/24 06:12 100 MLS/HR Albuterol 2.5 mg Q4HR NEB 05/12/24 14:00 05/15/24 09:46 2.5 MG Ipratropium [place] 0.5 mg Q4HR NEB 05/12/24 14:00 05/15/24 09:46 0.5 MG Lorazepam 1 mg Q8HP PRN IV 05/12/24 14:00 05/15/24 09:27 1 MG Methylprednisolone Sodium Succinate 60 mg Q8HR IV 05/12/24 22:00 05/15/24 05:58 60 MG Dextrose 50 ml UD PRN IV 05/13/24 17:30 Diagnostic Test (Pha) 1 strip Q4H 05/13/24 18:10 05/15/24 09:53 1 STRIP Insulin Human Regular Q4H SC 05/13/24 18:11 05/15/24 10:08 4 UNITS Clonidine HCl 0.2 mg Q6HP PRN PO 05/14/24 10:00 05/14/24 14:36 0.2 MG Morphine Sulfate 2 mg Q4HPRN PRN IV 05/14/24 20:30 05/15/24 09:27 2 MG Laboratory Results Laboratory Tests 05/13/24 07:37 Urinalysis Test 05/13/24 03:34 Urine Color Light-yellow (Yellow) Urine Clarity Clear (Clear) Urine pH 6.5 (5.0-9.0) Urine Specific [place] 1.019 (1.001-1.035) Urine Protein Trace (Negative) H Urine Ketones Negative (Negative) Urine Blood Negative /uL (Negative) Urine Nitrite Negative (Negative) Urine Bilirubin Negative (Negative) Urine Urobilinogen Normal mg/dL (Negative) Urine Leukocyte Esterase Negative /uL (Negative) Urine RBC <1 /hpf (0 - 4) Urine Microscopic WBC 2 /HPF (0-5) Urine Squamous Epithelial Cells None seen /hpf (<5) Urine Bacteria None seen /hpf (None Seen) Urine Glucose 1+ mg/dL (Normal) H Microbiology Microbiology Date/Time Source Procedure Growth Status 05/13/24 03:34 Urine - [place] Urine Culture - Final Complete 05/12/24 15:33 Blood Blood Culture - Preliminary NO GROWTH AFTER 48 HOURS OF INCUBATION. Resulted Labs and/or images reviewed: Labs reviewed by me, Image(s) reviewed by me Assessment/Plan Assessment/Plan Septic shock Secondary to community-acquired pneumonia with elevated white count shortness of breath and altered mental status Acute Hypoxic respiratory failure: Oxygen by nasal cannula 4 liters/minute Acute right pneumothorax status post chest tube placement in the ER by Dr. Juan Right-sided pneumonia consult for Dr. 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
[2024-05-15] MEDS: NICOTINE 21MG/24 HR TOPICAL PATCH TD ONE (12:27)
--- NOTE | 2024-05-15 20:16 | DVHPN2 ---
Progress Note - Dictate Date Seen: May 15, 2024 Medical Necessity Reason Pt with a Central, PICC or Fol: Yes The following are medically ne: Munroe Catheter Reason for munroe catheter: Strict I&O Subjective Patient seen and examined at bedside. Remains on supplemental oxygen Overnight events reviewed. vital signs Vital Sign Date Time Temp Pulse Resp B/P (MAP) Pulse Ox O2 Delivery O2 Flow Rate FiO2 05/15/24 18:07 72 18 145/80 05/15/24 17:00 97.5 96 97.5 05/15/24 16:24 Nasal Cannula* 2 28 Total Intake and Output 05/14/24 05/14/24 05/15/24 15:00 23:00 07:00 Intake Total 1100 ml 550 ml Output Total 1500 ml 1531 ml Balance 1100 ml -1500 ml -981 ml medications Current Medications Medications Dose Ordered Sig/Parrish Route Start Time Stop Time Status Last Admin Dose Admin Ceftriaxone Sodium 50 ml @ 100 mls/hr DAILY@09 IV 05/13/24 09:00 05/15/24 09:04 100 MLS/HR Azithromycin 250 ml @ 125 mls/hr DAILY IV 05/12/24 10:00 05/15/24 10:07 125 MLS/HR Acetaminophen/ Hydrocodone Bitart 1 tab Q4HP PRN PO 05/12/24 07:45 05/15/24 14:24 1 TAB Ondansetron HCl 4 mg Q4HP PRN IV 05/12/24 07:45 05/13/24 22:37 4 MG Enoxaparin Sodium 40 mg DAILY SC 05/12/24 10:00 05/15/24 10:07 40 MG Acetaminophen 650 mg Q6HP PRN PO 05/12/24 07:45 05/14/24 01:04 650 MG Nitroglycerin 0.4 mg Q5MINP PRN SL 05/12/24 07:45 Morphine Sulfate 2 mg Q30M PRN IV 05/12/24 07:45 05/15/24 06:12 2 MG Sodium Chloride 1,000 ml @ 100 mls/hr Q10H IV 05/12/24 08:00 05/15/24 06:12 100 MLS/HR Albuterol 2.5 mg Q4HR NEB 05/12/24 14:00 05/15/24 18:52 2.5 MG Ipratropium [place] 0.5 mg Q4HR NEB 05/12/24 14:00 05/15/24 18:52 0.5 MG Lorazepam 1 mg Q8HP PRN IV 05/12/24 14:00 05/15/24 17:37 1 MG Methylprednisolone Sodium Succinate 60 mg Q8HR IV 05/12/24 22:00 05/15/24 14:25 60 MG Dextrose 50 ml UD PRN IV 05/13/24 17:30 Diagnostic Test (Pha) 1 strip Q4H 05/13/24 18:10 05/15/24 17:46 1 STRIP Insulin Human Regular Q4H SC 05/13/24 18:11 05/15/24 17:51 8 UNITS Clonidine HCl 0.2 mg Q6HP PRN PO 05/14/24 10:00 05/14/24 14:36 0.2 MG Morphine Sulfate 2 mg Q4HPRN PRN IV 05/14/24 20:30 05/15/24 17:37 2 MG Nicotine 1 patch DAILY TD 05/16/24 10:00 objective Gen.: Patient lying in bed in no apparent distress. On supplemental oxygen. Head: Normocephalic, atraumatic. Eyes: EOMI/PERRLA. Ears: Normal hearing. Normal anatomy. Neck/trachea: Trachea midline, supple. Nose: Normal external anatomy. Mouth: Moist mucous membranes. Chest: Decreased air entry bilaterally. No wheezing or rhonchi. Cardiovascular: Positive S1, positive S2. Regular rate and rhythm. Abdomen: Positive bowel sounds in all 4 quadrants. Soft, non-tender, non- distended. : Deferred. Rectal: Deferred. Skin: Warm, dry. Intact. Extremities: 2+ radial pulses bilaterally. No lower extremity edema. Neuro: Awake, alert, oriented x3. No gross motor or sensory deficits. Cranial nerves II through XII intact. Gait not assessed. laboratory and microbiology Laboratory Tests 05/13/24 07:37 Test 05/13/24 07:37 Range/Units Serum Glucose 325 H 74-106 mg/dL Assessment/Plan Impression: Acute on chronic hypoxic respiratory failure Dependence on supplemental oxygen Moderate right pneumothorax Sepsis Hypomagnesemia Nicotine dependence Atelectasis Events: Remains on supplemental oxygen, 3 LPM NC Taper O2 as tolerated No air leak Chest tube placed to water seal. Repeat chest x-ray at 9:30 PM. Continue bronchodilators Continue IV steroids Continue antibiotics Accu-Cheks, ISS. IV fluids with NS at 100 ml/hr. Monitor renal function. Monitor electrolytes. Supplement as necessary. Labs and imaging reviewed. Rest of plan as noted below. Plan: Placed second chest tube on 05/12/24 - chest tube placed to -30cm H2O Chest x-ray demonstrated interval placement of chest tube at right lung apex. No residual pneumothorax. Airspace consolidation again noted in right upper lobe. No pleural effusion. Patient improved post Alfonso chest tube placement. Continue supplemental oxygen Titrate to keep O2 sats above 92%. Continue IV steroids Continue antibiotics Follow up cultures Accu-Cheks, ISS IV fluids with NS at 100 ml/hr. Monitor renal function. Monitor electrolytes. Supplement as necessary. Magnesium supplementation Monitor ins and outs. DVT prophylaxis - Lovenox. Prognosis: Guarded given patient's multiple co-morbidities. Rest of plan per hospitalist and other consultants. Thank you Dr. Eller for allowing me to participate in this patient's care. Further recommendations will depend on the patient's clinical course. Please do not hesitate to contact me if you have any questions or concerns. This medical document was created using an electronic medical record system with [employer] computerized dictation system. Although these documentations are being carefully reviewed, there may still be some phonetic and typographical changes. The errors are purely typographical, due to imperfection on the software program, and do not reflect any compromise in the patient's medical care. Plan discussed with: Patient, Other (JORDAN Aldana) GILBERT GARCIA MD May 15, 2024 20:16
[2024-05-16] VITALS (31 sets, daily range): BP systolic 137–152; BP diastolic 75–84; PULSE 68–97; RESP 16–22; TEMP 97.6–98.6; O2SAT 9–100
[2024-05-16] MEDS: InsuLIN REG 1unit/0.01ml Soln (100units/ml) SC SCH (08:00)
[2024-05-16] MEDS: ACCU-CHEK COMFORT CURVE STRIP VI SCH (08:00)
[2024-05-16] MEDS: NICOTINE 21MG/24 HR TOPICAL PATCH TD SCH (09:12)
--- NOTE | 2024-05-16 10:08 | DVHPN2 ---
Reviewed: Care Plan, H&P, Labs, Medications, Previous Orders, Radiology Changes from previous H/P or p: No Changes Eyes: No Pain, No Vision change, No Conjunctivae inflammation, No Eyelid inflammation, No Other, No Redness ENT: No Ear pain, No Ear discharge, No Nose pain, No Nose discharge, No Nose congestion, No Mouth pain, No Mouth swelling, No Throat pain, No Throat swelling, No Other Cardiovascular: No Chest Pain, No Palpitations, No Orthopnea, No Paroxysmal Noc. Dyspnea, No Edema, No Lt Headedness, No Other Respiratory: No Cough, No Dry; Shortness of breath; No SOB with excertion, No Wheezing, No Hemoptysis, No Pleuritic Pain, No Sputum, No Other Gastrointestinal: No Nausea, No Vomiting, No Abdominal Pain, No Diarrhea, No Constipation, No Melena, No Hematochezia, No Other Genitourinary: No Dysuria, No Frequency, No Incontinence, No Hematuria, No Retention, No Other Musculoskeletal: No other, No neck pain, No shoulder pain, No arm pain, No back pain, No hand pain, No leg pain, No foot pain Skin: No Rash, No Lesions, No Jaundice, No Bruising, No Other Objective Vitals Vital Signs Date Time Temp Pulse Resp B/P (MAP) Pulse Ox O2 Delivery O2 Flow Rate FiO2 05/16/24 09:07 85 19 150/78 05/16/24 08:31 97.8 95 97.8 05/16/24 05:41 Nasal Cannula* 2 28 Intake/Output Intake and Output 05/16/24 07:00 Intake Total 4270 ml Output Total 53911 ml Balance -6030 ml Intake Oral 3970 ml IV Total 300 ml Output Urine Total 52047 ml # Bowel Movements 2 Medications Current Medications Medications Dose Ordered Sig/Parrish Route Start Time Stop Time Status Last Admin Dose Admin Ceftriaxone Sodium 50 ml @ 100 mls/hr DAILY@09 IV 05/13/24 09:00 05/16/24 09:18 100 MLS/HR Azithromycin 250 ml @ 125 mls/hr DAILY IV 05/12/24 10:00 05/15/24 10:07 125 MLS/HR Acetaminophen/ Hydrocodone Bitart 1 tab Q4HP PRN PO 05/12/24 07:45 05/15/24 14:24 1 TAB Ondansetron HCl 4 mg Q4HP PRN IV 05/12/24 07:45 05/13/24 22:37 4 MG Enoxaparin Sodium 40 mg DAILY SC 05/12/24 10:00 05/16/24 09:12 40 MG Acetaminophen 650 mg Q6HP PRN PO 05/12/24 07:45 05/14/24 01:04 650 MG Nitroglycerin 0.4 mg Q5MINP PRN SL 05/12/24 07:45 Morphine Sulfate 2 mg Q30M PRN IV 05/12/24 07:45 05/15/24 06:12 2 MG Sodium Chloride 1,000 ml @ 100 mls/hr Q10H IV 05/12/24 08:00 05/15/24 06:12 100 MLS/HR Albuterol 2.5 mg Q4HR NEB 05/12/24 14:00 05/16/24 05:41 2.5 MG Ipratropium [place] 0.5 mg Q4HR NEB 05/12/24 14:00 05/16/24 05:41 0.5 MG Lorazepam 1 mg Q8HP PRN IV 05/12/24 14:00 05/16/24 01:22 1 MG Methylprednisolone Sodium Succinate 60 mg Q8HR IV 05/12/24 22:00 05/16/24 05:14 60 MG Dextrose 50 ml UD PRN IV 05/13/24 17:30 Clonidine HCl 0.2 mg Q6HP PRN PO 05/14/24 10:00 05/14/24 14:36 0.2 MG Morphine Sulfate 2 mg Q4HPRN PRN IV 05/14/24 20:30 05/16/24 09:07 2 MG Nicotine 1 patch DAILY TD 05/16/24 10:00 05/16/24 09:12 1 PATCH Diagnostic Test (Pha) 1 strip Q4H 05/16/24 08:00 05/16/24 08:00 1 STRIP Insulin Human Regular Q4H SC 05/16/24 08:00 05/16/24 08:00 4 UNITS Laboratory Results Laboratory Tests 05/13/24 07:37 Urinalysis Test 05/13/24 03:34 Urine Color Light-yellow (Yellow) Urine Clarity Clear (Clear) Urine pH 6.5 (5.0-9.0) Urine Specific [place] 1.019 (1.001-1.035) Urine Protein Trace (Negative) H Urine Ketones Negative (Negative) Urine Blood Negative /uL (Negative) Urine Nitrite Negative (Negative) Urine Bilirubin Negative (Negative) Urine Urobilinogen Normal mg/dL (Negative) Urine Leukocyte Esterase Negative /uL (Negative) Urine RBC <1 /hpf (0 - 4) Urine Microscopic WBC 2 /HPF (0-5) Urine Squamous Epithelial Cells None seen /hpf (<5) Urine Bacteria None seen /hpf (None Seen) Urine Glucose 1+ mg/dL (Normal) H Microbiology Microbiology Date/Time Source Procedure Growth Status 05/13/24 03:34 Urine - [place] Urine Culture - Final Complete 05/12/24 15:33 Blood Blood Culture - Preliminary NO GROWTH AFTER 72 HOURS OF INCUBATION. Resulted Labs and/or images reviewed: Labs reviewed by me, Image(s) reviewed by me Assessment/Plan Assessment/Plan Septic shock Secondary to community-acquired pneumonia with elevated white count shortness of breath and altered mental status Acute Hypoxic respiratory failure: Oxygen by nasal cannula 4 liters/minute Acute right pneumothorax status post chest tube placement in the ER by Dr. Juan Right-sided pneumonia consult for Dr. 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 Plan discussed with: Patient My Orders Orders - REYES LANE MD Procedure Category Date Status Time Nicotine 21mg/24hr PHA 05/16/24 In Process (Nicoderm 21mg/24hr) 10:00 Glucose Blood PHA 05/16/24 In Process (Accu-Chek Com[place] 08:00 Insulin R (Human) PHA 05/16/24 In Process (Insulin R) 08:00 Complete Blood Count LAB 05/16/24 Logged 10:03 Comprehensive LAB 05/16/24 Logged Metabolic Panel 10:03 Pt Request For Service PT 05/16/24 Verified 10:04 Date of Service: May 16, 2024 Billing Provider: REYES LANE MD Common Visit Codes: [id number] INP/OBS CARE(HIGH) REYES LANE MD May 16, 2024 10:08
[2024-05-16 12:42] LABS: Mean Corpuscular Hemoglobin 26.8 pg (28.0-32.0); Mean Corpuscular Hgb Conc. 32.4 g/dL (32.0-36.0); Mean Corpuscular Volume 82.7 fL (80.0-100.0); Platelet Count (auto) 615 10^3/uL (140-450); Red Blood Cells 4.11 10^6/uL (4.0-5.20); Red Cell Distribution Width 14.3 % (11.8-14.3)
[2024-05-16 12:48] LABS: Band Neutrophils % (manual) 0; Basophils % (manual) 0 (0.0-2.0); Blast Cells 0; Eosinophils % (manual) 0 (0-7); Metamyelocytes % 0; Monocytes % (manual) 0 (0-12); Myelocytes % 0; Promyelocytes % 0; Reactive Lymphocytes 0
[2024-05-16 13:02] LABS: Alanine Aminotransferase 14 U/L (7-40); Alkaline Phosphatase 71 U/L (46-116); Anion Gap 6 (5-15); BUN/Creatinine Ratio 41.4 (10.0-20.0); Carbon Dioxide 28 mmol/L (20-31); Chloride 98 mmol/L (98-107); Potassium 4.3 mmol/L (3.5-5.1)
[2024-05-16 13:14] LABS: Lymphocytes % (manual) 2 (10.0-50.0); Platelet Estimate Increased
[2024-05-16 13:24] LABS: Aspartate Aminotransferase < 8 U/L (13-40); Bilirubin, Total 0.3 mg/dL (0.2-1.0); Blood Urea Nitrogen 24 mg/dL (9-23); Calcium 8.5 mg/dL (8.7-10.4); Glucose 261 mg/dL (74-106); Sodium 132 mmol/L (136-145)
--- NOTE | 2024-05-16 14:48 | DVH ---
CHEST RADIOGRAPH Indication: Chest tube disconnection. Technique: Single frontal view of the chest was obtained Comparison: XY CHEST PORTABLE on DOS: 05/15/24, XY CHEST PORTABLE on DOS: 05/13/24, XY CHEST XRAY 1 VIEW on DOS: 05/12/24 FINDINGS: Lines and Tubes: Chest tube in place in the right upper lung field unchanged Lungs: No focal consolidation. Pleura: No effusion. No pneumothorax visualized Cardiomediastinal contours: Unremarkable Bones: No acute osseous abnormality. IMPRESSION: 1. No acute cardiopulmonary disease. 2. Chest tube in place unchanged in the right upper lung field. There is no residual pneumothorax.
--- NOTE | 2024-05-16 20:20 | DVH ---
CHEST RADIOGRAPH Indication: s/p right chest tube removal, x 2, r/o PTX Technique: Single frontal view of the chest was obtained COMPARISON: None FINDINGS: Lines and Tubes: None Lungs: Multifocal right lung airspace disease. Pleura: No effusion. No pneumothorax. Cardiomediastinal contours: Subcutaneous emphysema along the right chest wall. Bones: Unremarkable IMPRESSION: No appreciable pneumothorax.
--- NOTE | 2024-05-16 21:04 | DVHPN2 ---
Progress Note - Dictate Date Seen: May 16, 2024 Medical Necessity Reason Pt with a Central, PICC or Fol: Yes The following are medically ne: Munroe Catheter Reason for munroe catheter: Strict I&O Subjective Patient seen and examined at bedside. Remains on supplemental oxygen Overnight events reviewed. vital signs Vital Sign Date Time Temp Pulse Resp B/P (MAP) Pulse Ox O2 Delivery O2 Flow Rate FiO2 05/16/24 20:53 85 18 152/75 05/16/24 18:12 100 05/16/24 18:06 Nasal Cannula* 2 28 05/16/24 16:50 98.6 98.6 Total Intake and Output 05/15/24 05/15/24 05/16/24 15:00 23:00 07:00 Intake Total 450 ml 2600 ml 1220 ml Output Total 5000 ml 5300 ml Balance 450 ml -2400 ml -4080 ml medications Current Medications Medications Dose Ordered Sig/[place]ish Route Start Time Stop Time Status Last Admin Dose Admin Ceftriaxone Sodium 50 ml @ 100 mls/hr DAILY@09 IV 05/13/24 09:00 05/16/24 09:18 100 MLS/HR Azithromycin 250 ml @ 125 mls/hr DAILY IV 05/12/24 10:00 05/16/24 10:00 125 MLS/HR Acetaminophen/ Hydrocodone Bitart 1 tab Q4HP PRN PO 05/12/24 07:45 05/16/24 11:23 1 TAB Ondansetron HCl 4 mg Q4HP PRN IV 05/12/24 07:45 05/13/24 22:37 4 MG Enoxaparin Sodium 40 mg DAILY SC 05/12/24 10:00 05/16/24 09:12 40 MG Acetaminophen 650 mg Q6HP PRN PO 05/12/24 07:45 05/14/24 01:04 650 MG Nitroglycerin 0.4 mg Q5MINP PRN SL 05/12/24 07:45 Morphine Sulfate 2 mg Q30M PRN IV 05/12/24 07:45 05/15/24 06:12 2 MG Sodium Chloride 1,000 ml @ 100 mls/hr Q10H IV 05/12/24 08:00 05/16/24 19:10 100 MLS/HR Albuterol 2.5 mg Q4HR NEB 05/12/24 14:00 05/16/24 18:06 2.5 MG Ipratropium [place] 0.5 mg Q4HR NEB 05/12/24 14:00 05/16/24 18:06 0.5 MG Methylprednisolone Sodium Succinate 60 mg Q8HR IV 05/12/24 22:00 05/16/24 20:42 60 MG Dextrose 50 ml UD PRN IV 05/13/24 17:30 Clonidine HCl 0.2 mg Q6HP PRN PO 05/14/24 10:00 05/14/24 14:36 0.2 MG Morphine Sulfate 2 mg Q4HPRN PRN IV 05/14/24 20:30 05/16/24 20:53 2 MG Nicotine 1 patch DAILY TD 05/16/24 10:00 05/16/24 09:12 1 PATCH Diagnostic Test (Pha) 1 strip Q4H 05/16/24 08:00 05/16/24 20:38 1 STRIP Insulin Human Regular Q4H SC 05/16/24 08:00 05/16/24 20:39 12 UNITS Lorazepam 1 mg Q6HP PRN IV 05/16/24 17:15 objective Gen.: Patient lying in bed in no apparent distress. On supplemental oxygen. Head: Normocephalic, atraumatic. Eyes: EOMI/PERRLA. Ears: Normal hearing. Normal anatomy. Neck/trachea: Trachea midline, supple. Nose: Normal external anatomy. Mouth: Moist mucous membranes. Chest: Decreased air entry bilaterally. No wheezing or rhonchi. Cardiovascular: Positive S1, positive S2. Regular rate and rhythm. Abdomen: Positive bowel sounds in all 4 quadrants. Soft, non-tender, non- distended. : Deferred. Rectal: Deferred. Skin: Warm, dry. Intact. Extremities: 2+ radial pulses bilaterally. No lower extremity edema. Neuro: Awake, alert, oriented x3. No gross motor or sensory deficits. Cranial nerves II through XII intact. Gait not assessed. laboratory and microbiology Laboratory Tests 05/16/24 12:03 Test 05/16/24 12:03 Range/Units Serum Glucose 261 H 74-106 mg/dL Assessment/Plan Impression: Acute on chronic hypoxic respiratory failure Dependence on supplemental oxygen Moderate right pneumothorax Sepsis Hypomagnesemia Nicotine dependence Atelectasis Events: Remains on supplemental oxygen, 2 LPM NC Taper O2 as tolerated Improving O2 requirements Chest x-ray shows no pneumothorax. Chest tubes were removed. Continue bronchodilators Continue IV steroids Continue antibiotics Accu-Cheks, ISS. IV fluids with NS at 100 ml/hr. Monitor renal function. Monitor electrolytes. Supplement as necessary. Maintain euvolemia Labs and imaging reviewed. Rest of plan as noted below. Plan: Placed second chest tube on 05/12/24 - chest tube placed to -30cm H2O Chest x-ray demonstrated interval placement of chest tube at right lung apex. No residual pneumothorax. Airspace consolidation again noted in right upper lobe. No pleural effusion. Patient improved post Alfonso chest tube placement. S/p chest tube removal 05/16/24 - pneumothorax resolved. Continue supplemental oxygen Titrate to keep O2 sats above 92%. Continue IV steroids Continue antibiotics Blood cultures show no growth after 72 hours Urine cultures show no growth after 48 hours Accu-Cheks, ISS IV fluids with NS at 100 ml/hr. Monitor renal function. Monitor electrolytes. Supplement as necessary. Magnesium supplementation Monitor ins and outs. DVT prophylaxis - Lovenox. Prognosis: Guarded given patient's multiple co-morbidities. Rest of plan per hospitalist and other consultants. Thank you Dr. Eller for allowing me to participate in this patient's care. Further recommendations will depend on the patient's clinical course. Please do not hesitate to contact me if you have any questions or concerns. This medical document was created using an electronic medical record system with [employer] dictation system. Although these documentations are being carefully reviewed, there may still be some phonetic and typographical changes. The errors are purely typographical, due to imperfection on the software program, and do not reflect any compromise in the patient's medical care. Plan discussed with: Patient, Other (JORDAN Leo) GILBERT GARCIA MD May 16, 2024 21:04
[2024-05-17] VITALS (19 sets, daily range): BP systolic 126–164; BP diastolic 58–86; PULSE 68–109; RESP 15–20; TEMP 97.8–98.3; O2SAT 94–100
--- NOTE | 2024-05-17 10:34 | DVHPN2 ---
Reviewed: Care Plan, H&P, Labs, Medications, Previous Orders, Radiology Changes from previous H/P or p: No Changes Eyes: No Pain, No Vision change, No Conjunctivae inflammation, No Eyelid inflammation, No Other, No Redness ENT: No Ear pain, No Ear discharge, No Nose pain, No Nose discharge, No Nose congestion, No Mouth pain, No Mouth swelling, No Throat pain, No Throat swelling, No Other Cardiovascular: No Chest Pain, No Palpitations, No Orthopnea, No Paroxysmal Noc. Dyspnea, No Edema, No Lt Headedness, No Other Respiratory: No Cough, No Dry; Shortness of breath; No SOB with excertion, No Wheezing, No Hemoptysis, No Pleuritic Pain, No Sputum, No Other Gastrointestinal: No Nausea, No Vomiting, No Abdominal Pain, No Diarrhea, No Constipation, No Melena, No Hematochezia, No Other Genitourinary: No Dysuria, No Frequency, No Incontinence, No Hematuria, No Retention, No Other Musculoskeletal: No other, No neck pain, No shoulder pain, No arm pain, No back pain, No hand pain, No leg pain, No foot pain Skin: No Rash, No Lesions, No Jaundice, No Bruising, No Other Objective Vitals Vital Signs Date Time Temp Pulse Resp B/P (MAP) Pulse Ox O2 Delivery O2 Flow Rate FiO2 05/17/24 09:56 68 16 100 05/17/24 09:50 Nasal Cannula 2.0 05/17/24 09:50 28 05/17/24 09:00 98.2 144/71 (95) 98.2 Intake/Output Intake and Output 05/17/24 07:00 Intake Total 6618 ml Output Total 2400 ml Balance 4218 ml Intake Oral 4318 ml IV Total 2300 ml Output Urine Total 2400 ml # Voids 6 # Bowel Movements 2 Medications Current Medications Medications Dose Ordered Sig/Parrish Route Start Time Stop Time Status Last Admin Dose Admin Ceftriaxone Sodium 50 ml @ 100 mls/hr DAILY@09 IV 05/13/24 09:00 05/17/24 09:09 100 MLS/HR Azithromycin 250 ml @ 125 mls/hr DAILY IV 05/12/24 10:00 05/16/24 10:00 125 MLS/HR Acetaminophen/ Hydrocodone Bitart 1 tab Q4HP PRN PO 05/12/24 07:45 05/17/24 05:52 1 TAB Ondansetron HCl 4 mg Q4HP PRN IV 05/12/24 07:45 05/13/24 22:37 4 MG Enoxaparin Sodium 40 mg DAILY SC 05/12/24 10:00 05/17/24 09:19 40 MG Acetaminophen 650 mg Q6HP PRN PO 05/12/24 07:45 05/14/24 01:04 650 MG Nitroglycerin 0.4 mg Q5MINP PRN SL 05/12/24 07:45 Morphine Sulfate 2 mg Q30M PRN IV 05/12/24 07:45 05/15/24 06:12 2 MG Sodium Chloride 1,000 ml @ 100 mls/hr Q10H IV 05/12/24 08:00 05/17/24 06:21 100 MLS/HR Albuterol 2.5 mg Q4HR NEB 05/12/24 14:00 05/17/24 09:50 2.5 MG Ipratropium [place] 0.5 mg Q4HR NEB 05/12/24 14:00 05/17/24 09:50 0.5 MG Methylprednisolone Sodium Succinate 60 mg Q8HR IV 05/12/24 22:00 05/17/24 05:51 60 MG Dextrose 50 ml UD PRN IV 05/13/24 17:30 Clonidine HCl 0.2 mg Q6HP PRN PO 05/14/24 10:00 05/14/24 14:36 0.2 MG Morphine Sulfate 2 mg Q4HPRN PRN IV 05/14/24 20:30 05/16/24 20:53 2 MG Nicotine 1 patch DAILY TD 05/16/24 10:00 05/17/24 09:18 1 PATCH Diagnostic Test (Pha) 1 strip Q4H 05/16/24 08:00 05/17/24 08:00 1 STRIP Insulin Human Regular Q4H SC 05/16/24 08:00 05/17/24 04:34 4 UNITS Lorazepam 1 mg Q6HP PRN IV 05/16/24 17:15 Laboratory Results Laboratory Tests 05/16/24 12:03 Chemistry Test 05/16/24 12:03 Albumin 3.0 g/dL (3.2-4.8) L Calcium Level 8.5 mg/dL (8.7-10.4) L Total Protein 5.0 g/dL (5.7-8.2) L LFT Test 05/16/24 12:03 Alanine Aminotransferase (ALT) 14 U/L (7-40) Alkaline Phosphatase 71 U/L (46-116) Aspartate Amino Transferase (AST) < 8 U/L (13-40) L Total Bilirubin 0.3 mg/dL (0.2-1.0) Urinalysis Test 05/13/24 03:34 Urine Color Light-yellow (Yellow) Urine Clarity Clear (Clear) Urine pH 6.5 (5.0-9.0) Urine Specific [place] 1.019 (1.001-1.035) Urine Protein Trace (Negative) H Urine Ketones Negative (Negative) Urine Blood Negative /uL (Negative) Urine Nitrite Negative (Negative) Urine Bilirubin Negative (Negative) Urine Urobilinogen Normal mg/dL (Negative) Urine Leukocyte Esterase Negative /uL (Negative) Urine RBC <1 /hpf (0 - 4) Urine Microscopic WBC 2 /HPF (0-5) Urine Squamous Epithelial Cells None seen /hpf (<5) Urine Bacteria None seen /hpf (None Seen) Urine Glucose 1+ mg/dL (Normal) H Microbiology Microbiology Date/Time Source Procedure Growth Status 05/13/24 03:34 Urine - [place] Urine Culture - Final Complete 05/12/24 15:33 Blood Blood Culture - Preliminary NO GROWTH AFTER 72 HOURS OF INCUBATION. Resulted Labs and/or images reviewed: Labs reviewed by me, Image(s) reviewed by me Assessment/Plan Assessment/Plan Septic shock Secondary to community-acquired pneumonia with elevated white count shortness of breath and altered mental status Acute Hypoxic respiratory failure: Oxygen by nasal cannula 4 liters/minute Acute right pneumothorax status post chest tube placement in the ER by Dr. Juan, chest tube removed on 05/16/2024, and x-ray shows no pneumothorax now Right-sided pneumonia consult for Dr. 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
[2024-05-17] MEDS ORDERED: DEXTROSE (50%) 50ML SYRG IV PRN (12:45)
[2024-05-17] MEDS: LORazepam 2MG/ML-1ML VIAL IV PRN (15:48)
[2024-05-17] MEDS: ACCU-CHEK COMFORT CURVE STRIP VI SCH (17:00)
[2024-05-17] MEDS: InsuLIN REG 1unit/0.01ml Soln (100units/ml) SC SCH ×2 (17:00→21:56)
[2024-05-18] VITALS (13 sets, daily range): BP systolic 133–153; BP diastolic 63–76; PULSE 68–95; RESP 15–22; TEMP 97.4–98.1; O2SAT 93–100
[2024-05-18] MEDS ORDERED: DEXTROSE (50%) 50ML SYRG IV PRN (09:30)
--- NOTE | 2024-05-18 09:44 | DVHDS2 ---
Discharge Summary Date of Admission May 12, 2024 at 07:42 Date of Discharge: May 18, 2024 Admitting Diagnosis Shortness of breath Wounds: Right-sided chest tube for pneumothorax Labs/Diagnostic Data: Laboratory Results Test 05/18/24 05:30 05/16/24 12:03 05/13/24 07:37 05/13/24 03:34 POC Glucose 203 mg/dl (70-106) White Blood Count 14.0 10^3/uL (4.4-10.8) Red Blood Count 4.11 10^6/uL (4.0-5.20) Hemoglobin 11.0 g/dL (12.2-16.2) Hematocrit 34.0 % (36.0-46.0) Mean Corpuscular Volume 82.7 fL (80.0-100.0) Mean Corpuscular Hemoglobin 26.8 pg (28.0-32.0) Mean Corpuscular Hemoglobin Concent 32.4 g/dL (32.0-36.0) Red Cell Distribution Width 14.3 % (11.8-14.3) Platelet Count 615 10^3/uL (140-450) Mean Platelet Volume 6.7 fL (6.9-10.8) Neutrophils (%) (Auto) % (37.0-80.0) Lymphocytes (%) (Auto) % (10.0-50.0) Monocytes (%) (Auto) % (0.0-12.0) Basophils (%) (Auto) % (0.0-2.0) Neutrophils # (Auto) 10 ^3/uL (1.6-8.6) Lymphocytes # (Auto) 10 ^3/uL (0.4-5.4) Monocytes # (Auto) 10 ^3/uL (0-1.3) Differential Total Cells Counted 100.0 (100) Neutrophils % (Manual) 98 (37.0-80.0) Band Neutrophils % (Manual) 0 Lymphocytes % (Manual) 2 (10.0-50.0) Monocytes % (Manual) 0 (0-12) Eosinophils % (Manual) 0 (0-7) Basophils % (Manual) 0 (0.0-2.0) Metamyelocytes % (manual) 0 Myelocytes % (Manual) 0 Promyelocytes % (Manual) 0 Blast Cells % (Manual) 0 Reactive Lymphocytes 0 Platelet Estimate Increased Sodium Level 132 mmol/L (136-145) Potassium Level 4.3 mmol/L (3.5-5.1) Chloride Level 98 mmol/L (98-107) Carbon Dioxide Level 28 mmol/L (20-31) Anion Gap 6 (5-15) Blood Urea Nitrogen 24 mg/dL (9-23) Creatinine 0.58 mg/dL (0.550-1.02) Glomerular Filtration Rate Calc 100 mL/min (>90) BUN/Creatinine Ratio 41.4 (10.0-20.0) Serum Glucose 261 mg/dL (74-106) Calcium Level 8.5 mg/dL (8.7-10.4) Total Bilirubin 0.3 mg/dL (0.2-1.0) Aspartate Amino Transferase (AST) < 8 U/L (13-40) Alanine Aminotransferase (ALT) 14 U/L (7-40) Alkaline Phosphatase 71 U/L (46-116) Total Protein 5.0 g/dL (5.7-8.2) Albumin 3.0 g/dL (3.2-4.8) Eosinophils (%) (Auto) 0.0 % (0.0-7.0) Eosinophils # (Auto) 0 10 ^3/uL (0-0.8) Basophils # (Auto) 0 10 ^3/uL (0-0.2) Nucleated Red Blood Cells 0.0 % Urine Color Light-yellow (Yellow) Urine Clarity Clear (Clear) Urine pH 6.5 (5.0-9.0) Urine Specific [place] 1.019 (1.001-1.035) Urine Protein Trace (Negative) Urine Ketones Negative (Negative) Urine Blood Negative /uL (Negative) Urine Nitrite Negative (Negative) Urine Bilirubin Negative (Negative) Urine Urobilinogen Normal mg/dL (Negative) Urine Leukocyte Esterase Negative /uL (Negative) Urine RBC <1 /hpf (0 - 4) Urine Microscopic WBC 2 /HPF (0-5) Urine Squamous Epithelial Cells None seen /hpf (<5) Urine Bacteria None seen /hpf (None Seen) Urine Glucose 1+ mg/dL (Normal) Test 05/12/24 16:55 05/12/24 13:30 05/12/24 02:36 05/12/24 01:55 Blood Gas Specimen Type Arterial Blood Gas Sample Site Right radial Blood Gas Patient Temperature 37.0 Arterial Blood Date Drawn [id number] Arterial Blood pH 7.427 (7.350-7.450) Arterial Blood Partial Pressure CO2 39.9 mmHg (32.0-45.0) Arterial Blood Partial Pressure O2 297.3 mmHg (83.0-108.0) Arterial Blood HCO3 25.7 mmol/L (21.0-28.0) Arterial Blood Oxygen Saturation 99.7 % (94.0-98.0) Arterial Blood Base Excess 1.3 mmol/L (-2.0-3.0) Arterial Blood Oxyhemoglobin 98.4 % (94.0-98.0) Arterial Blood Carboxyhemoglobin 0.8 % (0.5-1.5) Arterial Blood Methemoglobin 0.5 % (0.0-1.5) Kt Test Yes Blood Gas Total Hemoglobin 12.50 g/dL (12.0-16.0) Blood Gas Liter Flow 70.00 Blood Gas Modality High flow FiO2 % 100.0 D-Dimer, Quantitative 1.73 mg/L FEU (0.0-0.49) Lactic Acid Level 3.1 mmol/L (0.4-2.0) Blood Gas Set Respiration Rate 12.0 Blood Gas Spontaneous Rate 19 Blood Gas Tidal Volume 620.0 Blood Gas EPAP 5 Blood Gas IPAP 12 Test 05/12/24 01:35 05/12/24 00:27 05/12/24 00:00 Troponin I High Sensitivity 5 ng/L (</=34) Hemoglobin A1c > 14.0 % A1C (<5.7) Magnesium Level 1.3 mg/dL (1.6-2.6) B-Type Natriuretic Peptide 123.46 pg/mL (0-100) Influenza Type A Antigen Negative (Negative) Influenza Type B Antigen Negative (Negative) SARS-CoV-2 Antigen (Rapid) Negative (NEGATIVE) Other Laboratory Tests 05/16/24 12:03 Brief Hx & Hospital Course: 63-year-old female with a history of diabetes anxiety depression chronic current smoker came in for shortness of breaths. Found to have community-acquired pneumonia right lower lobe treated with Rocephin and azithromycin albuterol Atrovent and Solu-Medrol. Patient had a pneumothorax of 30 percent in the right side seen by pulmonology Dr. Juan who inserted chest tube and pneumothorax slowly resolved and chest tube was removed on 05/16/2024. Patient made a slow but steady recovery. At the time of discharge she is on room air stable vital signs afebrile blood sugars are high 410 with a A1c 14. Patient was put on aggressive insulin sliding scale and will be closely [facility]. [facility] Rocephin 1 g IV daily for three weeks and azithromycin 500 mg IV daily for three weeks for pneumonia. The patient is agreeable for the plan She will be given nicotine patch for smoking Consults/Reason for consult Pulmonology Dr. Juan Operations or Procedures Chest tube placement for pneumothorax Condition at Discharge: Fair Final Diagnosis/Problems List Septic shock Secondary to community-acquired pneumonia with elevated white count shortness of breath and altered mental status Acute Hypoxic respiratory failure: Oxygen by nasal cannula 4 liters/minute Acute right pneumothorax status post chest tube placement in the ER by Dr. Juan, chest tube removed on 05/16/2024, and x-ray shows no pneumothorax now Right-sided pneumonia consult for Dr. Juan Rocephicameron azithromycin med-nebs Uncontrolled diabetes with glucose of 410; insulin aggressive sliding scale diabetic education , A1c more than 14 Acute lactic acidosis Acute metabolic acidosis Anxiety Depression Chronic current smoker counseling nicotine patch Discharge Disposition: [facility]irement Facility Discharge Instruct/Medications Diet: Cardiac 2g Na,low cholest Activity: Light activity Follow Up/Referral: [facility] up with the [facility] Medications: Azithromycin 5 mg IV daily for three weeks Rocephin 1 g IV daily for three weeks Both for pneumonia See list for other meds 39 (Time taken for discharge summary 39 minutes) Discharge Statement: "Patient was advised to return to the ER or call 911 if any headaches, dizziness, shortness of breath, chest pain, abdominal pain, bleeding, fevers, or worsening of medical condition. Patient was counseled about treatment plan, medications, possible side effects, patientverbalized understanding. All questions were answered to the best of my ability. This discharge took greater then 30 minutes in planning, reviewing documentation, counseling the patient, and discussing with other team members." ASSESSMENT ASSESSMENT Hospital Course Improved significantly Assessment Septic shock Secondary to community-acquired pneumonia with elevated white count shortness of breath and altered mental status Acute Hypoxic respiratory failure: Oxygen by nasal cannula 4 liters/minute Acute right pneumothorax status post chest tube placement in the ER by Dr. Juan, chest tube removed on 05/16/2024, and x-ray shows no pneumothorax now Right-sided pneumonia consult for Dr. Juan Rocephin azithromycin med-nebs Uncontrolled diabetes with glucose of 410; insulin aggressive sliding scale diabetic education , A1c more than 14 Acute lactic acidosis Acute metabolic acidosis Anxiety Depression Chronic current smoker counseling nicotine patch Date of Service: May 18, 2024 Billing Provider: REYES LANE MD Common Visit Codes: [id number] DISCH DAY >30min REYES L[address] MD May 18, 2024 09:44
[2024-05-18] MEDS: ACCU-CHEK COMFORT CURVE STRIP VI SCH (12:00)
[2024-05-18] MEDS: InsuLIN REG 1unit/0.01ml Soln (100units/ml) SC SCH (12:05)
--- NOTE | 2024-05-18 23:21 | DVHPN2 ---
Progress Note - Dictate Date Seen: May 18, 2024 Medical Necessity Reason Pt with a Central, PICC or Fol: Yes The following are medically ne: Munroe Catheter Reason for munroe catheter: Strict I&O Subjective Patient seen and examined at bedside. Remains on supplemental oxygen Overnight events reviewed. vital signs Vital Sign Date Time Temp Pulse Resp B/P (MAP) Pulse Ox O2 Delivery O2 Flow Rate FiO2 05/18/24 12:41 98.1 82 18 150/76 (100) 95 98.1 05/18/24 10:00 Room Air* 0 21 Total Intake and Output 05/17/24 05/17/24 05/18/24 15:00 23:00 07:00 Intake Total 50 ml 1350 ml 450 ml Output Total 1000 ml Balance 50 ml 350 ml 450 ml objective Gen.: Patient lying in bed in no apparent distress. On supplemental oxygen. Head: Normocephalic, atraumatic. Eyes: EOMI/PERRLA. Ears: Normal hearing. Normal anatomy. Neck/trachea: Trachea midline, supple. Nose: Normal external anatomy. Mouth: Moist mucous membranes. Chest: Decreased air entry bilaterally. No wheezing or rhonchi. Cardiovascular: Positive S1, positive S2. Regular rate and rhythm. Abdomen: Positive bowel sounds in all 4 quadrants. Soft, non-tender, non- distended. : Deferred. Rectal: Deferred. Skin: Warm, dry. Intact. Extremities: 2+ radial pulses bilaterally. No lower extremity edema. Neuro: Awake, alert, oriented x3. No gross motor or sensory deficits. Cranial nerves II through XII intact. Gait not assessed. laboratory and microbiology Laboratory Tests 05/16/24 12:03 Test 05/16/24 12:03 Range/Units Serum Glucose 261 H 74-106 mg/dL Assessment/Plan Impression: Acute on chronic hypoxic respiratory failure Dependence on supplemental oxygen Moderate right pneumothorax, resolved Sepsis Hypomagnesemia Nicotine dependence Atelectasis Events: Remains on supplemental oxygen, 2 LPM NC Taper O2 as tolerated Continue bronchodilators Continue IV steroids Continue antibiotics Accu-Cheks, ISS. IV fluids with NS at 100 ml/hr. Monitor renal function. Monitor electrolytes. Supplement as necessary. Maintain euvolemia Physical therapy Patient is stable for discharge from the pulmonary standpoint. Labs and imaging reviewed. Rest of plan as noted below. Plan: Placed second chest tube on 05/12/24 - chest tube placed to -30cm H2O Chest x-ray demonstrated interval placement of chest tube at right lung apex. No residual pneumothorax. Airspace consolidation again noted in right upper lobe. No pleural effusion. Patient improved post Alfonso chest tube placement. S/p chest tube removal 05/16/24 - pneumothorax resolved. Continue supplemental oxygen Titrate to keep O2 sats above 92%. Continue IV steroids Continue antibiotics Blood cultures show no growth after 72 hours Urine cultures show no growth after 48 hours Accu-Cheks, ISS IV fluids with NS at 100 ml/hr. Monitor renal function. Monitor electrolytes. Supplement as necessary. Monitor ins and outs. DVT prophylaxis - Lovenox. Prognosis: Guarded given patient's multiple co-morbidities. Rest of plan per hospitalist and other consultants. Thank you Dr. Eller for allowing me to participate in this patient's care. Further recommendations will depend on the patient's clinical course. Please do not hesitate to contact me if you have any questions or concerns. This medical document was created using an electronic medical record system with [employer] dictation system. Although these documentations are being carefully reviewed, there may still be some phonetic and typographical changes. The errors are purely typographical, due to imperfection on the software program, and do not reflect any compromise in the patient's medical care. Dietary Evaluation Review Comments: To ensure a balance diet, upgrade diet to CCHO-60g Cardiac low fat Low Cholesterol Diet. Expected Outcomes/Goals: Grdaul wt loss and controlled Glucose levels, improved overall health and less anxiety. Plan discussed with: Patient, Other (GILBERT Ortega MD May 18, 2024 23:21
== END 2024-05-18 16:17 | DRG 871 ==
LOC: ER 00:01 → TELE 07:42 → TELE-CENTR 05-14 15:53 → OVERFLOW 05-16 14:52 → CENTRAL 05-16 15:02 → OVERFLOW 05-17 12:47 → TELE-CENTR 05-17 12:53
PROVIDERS: ADMIT Family Medicine; ATTEND Family Medicine
PROC: 0W9930Z Drainage of Right Pleural Cavity with Drainage Device, Percutaneous Approach (ICD-10-PCS; principal; 2024-05-12)
PROC: 5A09357 Assistance with Respiratory Ventilation, Less than 24 Consecutive Hours, Continuous Positive Airway Pressure (ICD-10-PCS; 2024-05-12)
PROC: 5A0935A Assistance with Respiratory Ventilation, Less than 24 Consecutive Hours, High Flow/Velocity Cannula (ICD-10-PCS; 2024-05-12)
PROC: 05HF33Z Insertion of Infusion Device into Left Cephalic Vein, Percutaneous Approach (ICD-10-PCS; 2024-05-17)
PROC: B54NZZA Ultrasonography of Left Upper Extremity Veins, Guidance (ICD-10-PCS; 2024-05-17)
DX: A41.9 Sepsis, unspecified organism (principal); J18.9 Pneumonia, unspecified organism; R65.21 Severe sepsis with septic shock; J80 Acute respiratory distress syndrome; E87.21 Acute metabolic acidosis; J93.83 Other pneumothorax; E83.42 Hypomagnesemia; Z20.822 Contact with and (suspected) exposure to COVID-19; F32.A Depression, unspecified; E11.9 Type 2 diabetes mellitus without complications; D69.6 Thrombocytopenia, unspecified; F41.9 Anxiety disorder, unspecified; F17.210 Nicotine dependence, cigarettes, uncomplicated; Z99.81 Dependence on supplemental oxygen; Z90.49 Acquired absence of other specified parts of digestive tract; Z79.899 Other long term (current) drug therapy; Z79.4 Long term (current) use of insulin
CPT/HCPCS: 32556; 36415; 36600; 71045; 80053; 81001; 82805; 82962; 83036; 83605; 83735; 83880; 84484; 85007; 85025; 85027; 85379; 87040; 87077; 87086; 87186; 87426; 87804; 94640; 94660; 96365; 96366; 96367; 96368; 96372; 96375; 97110; 97116; 97163; 97530; 99291; C1724; G0378; J1815; J2003; J2405; J2543